=== PATIENT | female | born 1985 | race Caucasian/White ===

== ENCOUNTER 2022-05-13 01:03 | Day surgery (SDC) | payer OTHER, SELFPAY ==
[2022-04-30 13:25] VITALS: BMI 34.0
--- NOTE | 2022-04-30 13:27 | SUR.PREOP ---
Report to the Outpatient Waiting Room, entrance under the green pavilion located off [facility], at time _0600 on date _05/13/22 . Planned Procedure Time: _0730. Time changes happen often and if your time is changed the preop area will call you the afternoon before. - You and your visitor will be asked to self-screen and do not enter if you have any COVID symptoms. - Only one visitor is requested with a max of two and NO children visitors are allowed at this time. - The patient visitor may be requested to leave or wait in car when not with patient due to distancing restrictions. - A mask is optional within the hospital. Patients may have clear liquids (water, carbonated beverages, clear teas, apple juice) until 3 hours prior to surgery with a maximum of 20 ounces. - No food from midnight until time of surgery - Infants may have breast milk until 4 hours before surgery, formula 6 hours prior to surgery. - Children will be allowed to drink immediately following surgery. If applicable, please bring a bottle or sippy cup to assist with drinking. Juice, water, soda, and popsicles are readily available. For infants on formula, please bring formula the day of surgery. Pacifiers are allowed. Take the following medications with a SIP of water the morning of surgery: __venlafexine Medications to discontinue per physician ____n/a Date to take last dose__n/a Please no make-up, nail pashto, hairspray, perfume, deodorant, or body powder the day of surgery. No jewelry (including any body piercings) or valuables the day of surgery, leave them at home. Please take a shower or bath the night before, or the morning of, surgery with an antibacterial soap. Wear comfortable, loose fitting clothing. Children are encouraged to wear pajamas. - Jewelry must be removed prior to entering the operating room. Rings and piercings that are not removed may be cut off. - The hospital will not accept responsibility for valuables. - Please leave all valuables, including medications, at home the day of surgery. If you are going home after surgery, a licensed bus driver supervisor must drive you home. - NO public transportation without another adult if you receive anesthesia. - We recommend that an adult stay with you for 24 hours following discharge. - We also recommend that you do not drive, make important decision, drink alcoholic beverages, or take any drugs that were not prescribed by your health care provider for at least 24 hours after your discharge time. For Pediatric surgeries, we recommend two adults accompany the child home. Follow any additional instructions given to you from your surgeon. If you or anyone in your household have experienced Covid symptoms in the past week, please notify your surgeon or the nurse liaison at the phone number below for possible testing. Telephone instructions given to emelina mahoney and asked if any additional questions and then verbalized understanding. Patient advised to call surgeon office or pre surgery nurse liaison [phone] if any additional questions.
--- NOTE | 2022-05-12 17:40 | WPDANESEPP ---
Anes - Eval Pre Procedure Procedure: Operation Date: 05/13/22 07:30 Proposed Procedures p Hysteroscopy, Dilation and Curettage, Novasure Endometrial Ablation - Mary Kate Pabon DO Date/Time: 05/12/22 17:40 Pre Op Diagnosis: abn ultrasound, abn uterine bleeding Patient Data Age: 36 Gender: F Height: 1.68 m Weight: 95.45 kg Allergies Allergy/AdvReac Type Severity Reaction Status Date / Time Sulfa (Sulfonamide Allergy Intermediate Hives Verified 04/30/22 13:11 Antibiotics) Home Medications Medication Instructions Recorded Confirmed Type venlafaxine 75 mg capsule,extended 7 mg PO DAILY 04/30/22 04/30/22 History release 24 hr Patient hx anesthesia problems: none Family hx anesthesia problems: none Results Review: All pre-operative results and documents have been reviewed as part of the pre-operative evaluation. [facility] Past Medical History Medical History (Updated 05/12/22 @ 17:41 by Mami Booth CRNA) Obesity (BMI 30-39.9) Social History Social History Smoking status: Never smoker Alcohol use details: socially Living arrangements: with family Spiritual care concerns: No Exam Day of Procedure 05/12/22 17:40
[2022-05-13 06:19] VITALS: BP 134/84; PULSE 88; RESP 16; TEMP 36.3; O2SAT 99
[2022-05-13] MEDS: ACETAMINOPHEN 500 MG TABLET 1000 MG PO (06:34)
[2022-05-13] MEDS: LACTATED RINGERS 1,000 ML 30 ML IV CONT (06:40)
--- NOTE | 2022-05-13 07:26 | PM.IMHP ---
H&P: HPI History of Present Illness Date/Time: 05/13/22 07:26 Chief Complaint: I'm here for a D&C, ablation Narrative: Patient presents for hysteroscopy, D&C with Novasure ablation for heavy, irregular periods and a history of failed medical management. Review of Systems Review of Systems: All systems reviewed & are unremarkable except as noted in HPI and below PMFSH Past Medical History Medical History (Updated 05/13/22 @ 07:27 by Mary Kate Pabon DO) Obesity (BMI 30-39.9) Social History Social History Smoking status: Never smoker Alcohol use details: socially Living arrangements: with family Spiritual care concerns: No Meds Home Medications and Allergies Home Medications Medication Instructions Recorded Confirmed Type venlafaxine 75 mg capsule,extended 7 mg PO DAILY 04/30/22 05/13/22 History release 24 hr Allergies Allergy/AdvReac Type Severity Reaction Status Date / Time Sulfa (Sulfonamide Allergy Intermediate Hives Verified 05/13/22 06:27 Antibiotics) Vital Signs Vital Signs - 24 hr 05/13/22 06:19 Temperature 36.3 C L Pulse Rate 88 Respiratory Rate 16 Blood Pressure 134/84 Pulse Oximetry 99 Oxygen Delivery Room Air Exam Const: General: comfortable and no acute distress Eyes: General: appearance normal, both eyes and all related structures Neck: Neck: supple Resp: Effort & Inspection: normal respiratory effort Cardio: Rate: regular rate Rhythm: regular rhythm GI: GI Palp: Yes Soft to palpation Auscultation: normal bowel sounds Skin: General skin exam: normal color and no rashes or lesions noted Neuro: General: gait normal Assessment and Plan Assessment and plan (1) Abnormal uterine bleeding: Code(s): N93.9 - Abnormal uterine and vaginal bleeding, unspecified Status: Acute Assessment and Plan: Abnormal uterine bleeding Plan Hysteroscopy, D&C, Novasure ablation
--- NOTE | 2022-05-13 07:32 | P.PNAN_ITS ---
Anes - Initial Pre Proc Eval Procedure: Operation Date: 05/13/22 07:30 Proposed Procedures p Hysteroscopy, Dilation and Curettage, Novasure Endometrial Ablation - Mary Kate Pabon DO Date/Time: 05/13/22 07:32 Surgeon: Mary Kate Pabon DO Pre Op Diagnosis: abn ultrasound, abn uterine bleeding Patient Data Age: 36 Gender: F Height: 1.68 m Weight: 93.85 kg Last Vital Signs Temp 36.3 C L 05/13/22 06:19 Pulse 88 05/13/22 06:19 Resp 16 05/13/22 06:19 BP 134/84 05/13/22 06:19 Pulse Ox 99 05/13/22 06:19 O2 Del Method Room Air 05/13/22 06:19 Allergies Allergy/AdvReac Type Severity Reaction Status Date / Time Sulfa (Sulfonamide Allergy Intermediate Hives Verified 05/13/22 06:27 Antibiotics) Home Medications Medication Instructions Recorded Confirmed Type venlafaxine 75 mg capsule,extended 7 mg PO DAILY 04/30/22 05/13/22 History release 24 hr Patient hx anesthesia problems: none Family hx anesthesia problems: none Results Review: All pre-operative results and documents have been reviewed as part of the pre- operative evaluation. [facility] Social History Social History Smoking status: Never smoker Alcohol use details: socially Living arrangements: with family Spiritual care concerns: No Anes - Eval Final PreProcedure Day of Procedure 05/13/22 07:32 Patient weight: overweight Heart: regular rate and rhythm Lungs: clear to auscultation Airway: Mallampati scale class II Neurological: alert and oriented Last oral intake: >/= 8 hours ASA classification: II Emergent: no Anesthetic plan: proceed Anesthesia type and monitoring: general GIVS and standard monitoring Results Review: All pre-operative results and documents have been reviewed as part of the pre- operative evaluation. Informed Consent: The patient's anesthetic plan and its attendant risks and benefits were discussed with the patient/family/POA. Questions were solicited and answers provided to the satisfaction of the patient/family/POA.
--- NOTE | 2022-05-13 07:38 | WPDHPUPDATE1 ---
History and Physical Update Update Date/Time: 05/13/22 07:38 History and Physical has been reviewed, including an updated exam of the patient. There are NO changes in the patient's condition. Risks, benefits, and alternatives have been discussed and questions answered. Patient agrees to proceed with procedure.
[2022-05-13] MEDS: BUPIVACAINE/EPINEPHRINE 0.5% 30 ML VIAL INFILTRATE (08:02)
[2022-05-13 08:33] VITALS: BP 107/67; PULSE 90; RESP 14; O2SAT 100
--- NOTE | 2022-05-13 08:33 | P.OP_ITS ---
Procedure Note - Detailed Date of Procedure 05/13/22 Pre-op Diagnosis Abnormal uterine bleeding Post-op Diagnosis Same (Endocervical scar tissue) Procedure Performed Hysteroscopy, D&C Surgeon Mary Kate Pabon, DO Anesthesia Regional Indications Abnormal uterine bleeding Findings Normal appearing vulva and vaginal canal. Large, patulous cervix with a defect on the Description of Procedure Patient was taken to the operating room where she was placed under IV sedation. A time-out was performed. No preoperative antibiotics were indicated. A speculum was placed in the vagina and the cervix was visualized. The anterior lip of the cervix was grasped with a single-tooth tenaculum. The cervix was noted to be large and patulous with a defect on the patient's left side at 3 o'clock. This was likely due to prior procedures or childbirth. The uterus was sounded with some difficulty and the canal was noted to be extremely retroflexed and retroverted with palpation of scar tissue as the sound passed the en docervical canal. The uterus sounded to 9 cm. Once the canal was identified and noted to be retroflexed, it was dilated up using Julian collared dilators. The hysteroscope was introduced and I was able to follow the curvature of the passage both to the patient's left and posteriorly to gain access to the endometrial cavity. Both tubal ostia were visualized insuring I was indeed in the endometrium. There was a possible slight septum and the top of the uterus. No perforation from the sound was noted. The lining of the uterus appeared thin and unremarkable. The remainder of the uterine cavity appeared unremarkable. As the scope was removed the cervical length was measured to be 4 cm. A sharp curettage of the endocervical and endometrial cavity was performedwith return of minimal tissue. I then attempted to pass the NovaSure device but was unsuccessful. I attempted to completely dilate up the cervical canal in hopes that this would stretch the band of scar tissue but this was unsuccessful. I then attempted to use the sharp curette tissue shave down this area of scar tissue, but the NovaSure was still difficult to pass. Eventually angling it to the patient's left and 1st anteriorly and then posteriorly, I was able to gain access into the endometrial cavity but unfortunately felt a loss of resistance. I pulled the device back and then deployed the arms, the distance into the uterus seemed appropriate so I was going to attempt a cavity check. There was then an error noted with the machine about the device array. Despite restarting the machine this error message continued and we elected to consider trying a new device. While a new NovaSure was being retrieved I placed the hysteroscope into the cavity to assess for perforation. A small perforation in the midline of the fundus was noted. There was no bowel or fat protruding through it, I could not see if it was full-thickness but the area was completely hemostatic even with low pressure on the fluid. After visualizing this I elected to abort the remainder of the procedure as it would not be safe to pursue an ablation at this point. The patient had previously been counseled about this extensively in the office. I removed all instruments from the vagina and wiped clean of fluid and blood clots. The tenaculum sites were made hemostatic with pressure. The patient was taken to the recovery room in stable condition. All instrument and sponge counts were correct at the conclusion of the procedure. Estimated Blood Loss 10 Pathology Yes Complications Other complications (Uterine perforation without immediate sequelae) Disposition Same day
[2022-05-13 09:00] VITALS: BP 108/65; PULSE 84; RESP 16; O2SAT 100
[2022-05-13 09:30] VITALS: BP 105/71; PULSE 73; RESP 16
[2022-05-13] MEDS: oxyCODONE HCL (*CRX) 5 MG TAB IR PO (09:30)
[2022-05-13] MEDS: DOXYCYCLINE HYCLATE 100 MG TABLET PO (09:30)
[2022-05-13 10:00] VITALS: BP 97/71; PULSE 73; RESP 16
== END 2022-05-13 10:18 | disposition home or self-care (01) ==
PROVIDERS: Visit Provider Obstetrics & Gynecology Gynecologic Oncology
PROC: 0U5B8ZZ Destruction of Endometrium, Via Natural or Artificial Opening Endoscopic (ICD-10-PCS; CPT 58563; principal; 2022-05-13 07:30)
DX: N93.9 Abnormal uterine and vaginal bleeding, unspecified (principal); N88.1 Old laceration of cervix uteri; N99.71 Accidental puncture and laceration of a genitourinary system organ or structure during a genitourinary system procedure; E66.9 Obesity, unspecified; Z68.33 Body mass index [BMI] 33.0-33.9, adult
CPT/HCPCS: 58563; 88305; A9270; J1885; J2250; J2405; J2704; J3010; J7030; J7120

== ENCOUNTER 2025-03-21 18:32 | Emergency (ER) | payer OTHER, SELFPAY ==
--- NOTE | ~2025-03-21 | US_ITS ---
US abdomen limited INDICATION: Right upper quadrant pain. Possible cholecystitis. Nausea and vomiting. PROCEDURE: Realtime right upper abdominal ultrasound. COMPARISON: No prior studies for comparison. FINDINGS: The pancreas is normal without focal mass or pancreatic ductal dilation. Liver echotexture is normal without focal mass or intrahepatic biliary dilatation. There is normal directional flow in the portal vein. Gallbladder is mildly distended and contains gallstones. No gallbladder wall thickening or pericholecystic fluid. Common bile duct measures 2 mm. No sonographic Chase's sign. IMPRESSION: 1: Cholelithiasis. Reviewed, dictated and finalized at location O. MATION SPECIALIST IMPRESSION: 1: Cholelithiasis.
[2025-03-21 18:34] VITALS: BP 133/87; PULSE 82; RESP 18; TEMP 36.6; O2SAT 100
--- OUTSIDE RECORDS SUMMARY | 2025-03-21 18:35 | XMS_ITS | Clinical Summary ---
Author Organization [facility] Address Formerly [facility], [facility] [place] [address] Care Team Providers Care Feedmobile Driver Name Role Phone Savanah Davis CARMEN Primary Care Provider [phone] Allergies Active Allergy Reactions Criticality Noted Date Comments Sulfa Antibiotics Hives 06/13/2015 Medications tirzepatide (ZEPBOUND) 2.5 MG/0.5ML injectionIndic ations:Weight Loss Inject 2.5 mg into the skin once a week. Indications: Weight Loss 8 mL 03/07/20 25 Active ZEPBOUND 2.5 MG/0.5ML injectionIndic ations:Encount er for weight management,Obe sity (BMI 30.0-34.9) INJECT 1 PEN SUBCUTANEOUSLY ONCE A WEEK 8 mL 12/31/19 25 025 Discontin ued(Reord er) Active Problems Problem Noted Date Diagnosed Date JOE (generalized anxiety disorder) 01/08/2021 Resolved Problems Problem Noted Date Diagnosed Date Resolved Date Class 1 obesity due to exces s calories without serious comorbidity with body mass index (BMI) of 34.0 to 34.9 in adult 01/08/2021 Polycystic ovarian syndrome 09/22/2014 01/08/2024 Immunizations Immunization Administration Dates Next Due Dtap 11/12/1992, 9,02/06/1988,1987,1987 Hepatitis B Pediatric 07/21/1997,02/13/1997,12/17 Influenza Adult (Generic) 03/09/2023 MMR 11/12/1992,12/03/1988 Opv 11/12/1992,02/04/1989,1987 ,1987 Tdap (Generic) 02/05/2023 Family History Medical History Relation Comments Bone cancer Father Hypertension Father Breast Cancer Maternal Aunt 1 Breast Cancer Maternal Aunt 2 Cancer Maternal Grandfather Lung Depression Mother Alcohol Abuse Paternal Grandfather Cancer Paternal Grandfather Lung Cancer Paternal Grandmother Cervical Relation Status Comments Father Maternal Aunt 1 Maternal Aunt 2 Alive Maternal Grandfather Mother Paternal Grandfather Paternal Grandmother Social History Tobacco Use Types Packs/Day Years Used Date Smoking Tobacco: Never Smokeless Tobacco: Never Tobacco Cessation:Counseling Given: Not Answered Alcohol Use Standard Drinks/Week Comments Not Currently 0 (1 standard drink = 0.6 oz pur e alcohol) socially PHQ-2 Answer Date Recorded Patient Health Questionnaire-2 Score 0 08/17/2024 Comments No Sex and Gender Information Value Date Recorded Sex Assigned at Female 08/17/2024 12:56 PM CDT 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 Gender Identity Not on file Sexual Orientation Not on file Last Filed Vital Signs Vital Sign Reading Time Taken Comments Blood Pressure 106/74 08/17/2024 12:54 PM CDT Pulse 78 08/17/2024 12:54 PM CDT Temperature 36.7 C (98.1 F) 08/17/2024 12:54 PM CDT Respiratory Rate 16 08/17/2024 12:5 4 PM CDT Oxygen Saturation 98% 08/17/2024 12: 54 PM CDT Inhaled Oxygen Concentration - - Weight 62.5 kg (137 lb 12.8 oz) 025 12:54 PM CDT Height 167.6 cm (5' 6) 08/17/2024 12:5 4 PM CDT Body Mass Index 22.24 08/17/2024 12:54 PM CDT Plan of Treatment Health Maintenance Due Date Last Done Comments Cervical Cancer Screening Pap Smear (Age 30 to 64) Every 3 Years 1987 HPV Vaccines (1 - 3-dose SCDM series) 07/28/2014 Cervical Cancer Screening Pap with HPV Testing (Age 30 to 64) Every 5 Years 07/28/2017 Annual Physical 01/07/2025 01/08/2024 Cervical Cancer Screening with HPV 06/16/2026 Postponed from 07/28/2017 (Going to Outside Clinic) DTaP, Tdap and Td Vaccines (7 - Td or Tdap) 02/05/2033 02/05/2023, 11/12/1992, 02/04/1989, Additional history exists COVID-19 Vaccine ( season) 2050 07/20/2020, 06/01/2020 Postponed from 01/16/2025 (Patient Refused) Hepatitis B Vaccines Completed 07/21/1997, 02/13/1997, 01/13/1997 Hepatitis C Completed 02/26/2021, 04/17/2020 PHQ-2 (Physician [place]) Completed 08/17/2024 Influenza Adult Completed 02/15/2025, 02/15, 03/09/2023 Hepatitis A Vaccines Aged Out No long er eligible based on patient's age to complete this topic Meningococcal B Vaccine Aged Out No l onger eligible based on patient's age to complete this topic Meningococcal Vaccine Aged Out No mercy marissa eligible based on patient's age to complete this topic Pneumococcal Vaccine: Pediatrics (0 to 5 Years) and At-Risk Patients (6 to 49 Years) Aged Out No longer eligible based on patient's age to complete this topic RSV Immunizations Under 20 Months Aged Out No longer eligible based on patient's age to complete this topic Procedures Procedure Name Priority Date/Time Associated Diagnosis Comments HEPATITIS C RNA W/ REFLX GENOTYPE Routine 02/26/2021 3:59 PM CDT from Last 3 Months or Most Recently Relevant to Health Maintenance Results * HEPATITIS C RNA W/ REFLX GENOTYPE (02/26/2021 3:59 PM CDT) HEPATITIS C AB NON-REACT JOHAN NON-REACT JOHAN [facility] SIGNAL TO CUTOFF 0.01 <1.00 [facility] Comment: HCV antibody was non-reactive. There is no laboratory evidence of HCV infection. In most cases, no further action is required. However, if recent HCV exposure is suspected, a test for HCV RNA (test code 20981) is suggested. For additional information please refer to http://education.CyberDefender/faq/VVA09m2 (This link is being provided for informational/ educational purposes only.) THIS TEST WAS PERFORMED AT: [employer] Referrals [id number] [facility] [place] [address] BRYANT CULVER DO,MPH 02/26/2021 3:59 PM CDT 02/26/2021 3:59 PM CDT Meredith Lerner MD LABORATORY Final Result [facility] [address] [place] [address] from Last 3 Months or Most Recently Relevant to Health Maintenance Insurance [facility] Advance Directives Documents on File Type Date Recorded Patient Open Cut Examiner Expl anation Advance Directives and Living Will 08/09/2015 12:00 AM ADVANCED DIRECTIVES Care Teams Feedmobile Driver Relationship Specialty Start Date End Date Savanah Davis FNP [address] [place] [id number] PCP - General Nurse Practitioner Family 12/16/23
--- OUTSIDE RECORDS SUMMARY | 2025-03-21 18:35 | XMS_ITS | Encounter Summary ---
Author Organization [facility] Address [address] [place] [address] Care Team Providers Care Cosmetician Name Role Phone Savanah Davis NP Primary Care Provider [phone] Encounter Details Date Type Department Care Team ([facility] st Contact Info) Description 03/21/2025 Results Follow-Up [address] [phone] Evelyne Farrell, DO [address] [place] [address] Pap and HPV, reflex to HPV Genotypes, SureSwab Advanced Vaginitis, TMA Social History Tobacco Use Types Packs/Day Years Used Date Smoking Tobacco: Never Smokeless Tobacco: Never PHQ-2 Answer Date Recorded PHQ-2 Total Score 0 03/15/2025 Comments Unknown Sex and Gender Information Value Date Recorded Sex Assigned at Not on file 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 Gender Identity Not on file Sexual Orientation Not on file Occupation Industry Job Start Date Job End Date nurse Not on file Not on file Not on file documented as of this encounter Ordered Prescriptions Prescription Sig Dispense Quantity Refills Last Filled Start Date End Date metroNIDAZOLE (FLAGYL) 500 mg tablet Take 1 tablet (500 mg total) by mouth 2 (two) times a day for 7 days 14 tablet 03/21/2025 03/28/2025 documented in this encounter Plan of Treatment Not on file documented as of this encounter Visit Diagnoses Not on filedocumented in this encounter Care Teams Cosmetician Relationship Specialty Start Date End Date Savanah Davis NP [address] [place] [address] [place] [id number] PCP - General Family Practice 10/28/24 documented as of this encounter
--- OUTSIDE RECORDS SUMMARY | 2025-03-21 18:35 | XMS_ITS | Clinical Summary ---
Author Organization [facility] Address [address] [place] [address] Care Team Providers Care Route Cdl Driver Name Role Phone Savanah Davis NP Primary Care Provider [phone] Allergies Active Allergy Reactions Criticality Noted Date Comments Sulfa (Sulfonamide Antibiotics) Rash,Urticaria Medium 10/20/2012 Medications Zepbound 2.5 mg/0.5 mL pen injector Inject 0.5 mL (2.5 mg total) under the skin once a week Active metroNIDAZOLE (FLAGYL) 500 mg tablet Take 1 tablet (500 mg total) by mouth 2 (two) times a day for 7 days 14 tablet 03/21/2025 Active Encounters Date Type Department Care Team Description 03/21/2025 Results Follow-Up [facility] [address] [place] [id number] Evelyne Farrell DO Pap and HPV, reflex to HPV Genotypes, SureSwab Advanced Vaginitis, TMA 03/15/2025 10:00 AM CDT Office Visit [facility] at [address] [place] [address] Evelyne Farrell DO Screen for sexually transmitted diseases (Primary Dx); Well woman exam from Last 3 Months Surgical History Surgery Date Site/Laterality Comments SECTION 02/08/2007 SECTION 01/03/2011 HYSTEROSCOPY 2-3 years ago Social History Tobacco Use Types Packs/Day Years Used Date Smoking Tobacco: Never Smokeless Tobacco: Never Tobacco Cessation:Counseling Given: Not Answered PHQ-2 Answer Date Recorded PHQ-2 Total Score 0 03/15/2025 Comments Unknown Sex and Gender Information Value Date Recorded Sex Assigned at Not on file 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 Gender Identity Not on file Sexual Orientation Not on file Occupation Industry Job Start Date Job End Date nurse Not on file Not on file Not on file Obstetrics History Para Term AB IAB SAB Ectopic Multiple Livin g Live Births 2 2 Date Outcome GA Total Labor Labor/2nd/3rd Weight Sex Type Anes PTL Aurelia A1 A5 Name Clin Last Filed Vital Signs Vital Sign Reading Time Taken Comments Blood Pressure 126/62 03/15/2025 10:19 AM CDT Pulse 80 03/15/2025 10:19 AM CDT Temperature - - Respiratory Rate - - Oxygen Saturation 98% 03/15/2025 10:19 AM CDT Inhaled Oxygen Concentration - - Weight 62.8 kg (138 lb 6.4 oz) 03/15/2025 10:19 AM CDT Height - - Body Mass Index - - Plan of Treatment Health Maintenance Due Date Last Done Comments Hepatitis C Screening 1987 Varicella Vaccines (1 of 2 - 13+ 2-dose series) 07/28/2000 Regular Well Visit/Exam 18-64 07/28/2005 HPV Vaccines (1 - 3-dose SCDM series) 07/28/2014 Covid-19 Vaccine ( season) 2025 07/20/2020, 06/01/2020 Influenza Vaccine (#1) 2025 03/01/2024, 2022 Cervical Cancer Screening 03/15/2026 03/15/2025 Depression Screening 03/15/2026 03/15/2025 DTaP/Tdap/Td Vaccine (7 - Td or Tdap) 02/05/2033 02/05/2023, 11/12/1992, 02/04/1989, Additional history exists Hepatitis B Screening Completed 07/21/1997 , 02/13/1997, 01/13/1997 Pneumococcal vaccine <65 Aged Out No longer eligible based on patient's age to complete this topic Procedures Procedure Name Priority Date/Time Associated Diagnosis Comments PAP AND HPV, REFLEX TO HPV GENOTYPES Routine 03/15/2025 3:27 PM CDT Well woman exam SURESWAB ADVANCED VAGINITIS, TMA Routine 03/15/2025 3:27 PM CDT from Last 3 Months Results * Pap and HPV, reflex to HPV Genotypes (03/15/2025 3:27 PM CDT) CLINICAL INFORMATION: [facility] Comment:WELL WOMAN/CERVICAL CANCER SCREENI LMP [facility] Comment:03/05/25 Previous Pap [facility] Comment:NONE GIVEN Prev. Bx [facility] Comment:NONE GIVEN SOURCE: [facility] Comment:Cervix, Endocervix Pap, specimen adequacy [facility] Comment: Satisfactory for evaluation. Endocervical/transformation zone component present. HPV interp [facility] Comment: Cytology Results: Negative for intraepithelial lesion or malignancy. Infection: [facility] Comment: Trichomonas vaginalis identified. Shift in vaginal norberto suggestive of bacterial vaginosis. COMMENTS [facility] Comment: This Pap test has been evaluated with the ThinPrep(R) Imaging System. General Production Worker [facility] Comment: FCB, CT(ASCP) CT screening location: [facility], [address] [place] [address] [address], [place] [address] Cash Register Servicer: JOSÉ HOUGH MD, CLIA: [id number] Comment [facility] Comment: EXPLANATORY NOTE: The Pap is a screening test for cervical cancer. It is not a diagnostic test and is subject to false negative and false positive results. It is most reliable when a satisfactory sample, regularly obtained, is submitted with relevant clinical findings and history, and when the Pap result is evaluated along with historic and current clinical information. Human papillomavirus DNA, High Risk E6/E7 Not Detected NOT DETECTED [facility] Comment: Not Detected High Risk HPV types (16,18,31,33,35,39,45,51,52, 56,58,59,66,68) were not detected. Other HPV types which cause anogenital lesions may be present. The significance of the other types of HPV in malignant processes has not been established. Methodology: Real Time PCR Thin prep-Endocervica l 03/15/2025 3:27 PM CDT 03/16/2025 3:02 PM CDT Evelyne Farrell DO LAB CYTOLOGY ORDERABLES Final Result Performing Organization Address City/[facility]/ZIP Co de Phone Number [facility] [place] [address] [address] [facility] [place] [address] [place] [address] * (ABNORMAL) Sureab Advanced Vaginitis, TMA (03/15/2025 3:27 PM CDT) SureSwab(R) ADV Bacterial vaginosis (BV), TMA POSITIVE(A) NEGATIVE [facility] Vilma species NOT DETECTED NOT DETECTED [facility] Vilma glabrata NOT DETECTED NOT DETECTED [facility] Comment: Vilma species C. albicans, C. tropicalis, C. parapsilosis, and/or C. dubliniensis can be detected, but not differentiated, in the Vilma spp. result. Trichomonas vaginalis (TV), TMA DETECTED(A) NOT DETECTED [facility] 03/15/2025 3:27 PM CDT 03/16/2025 3:02 PM CDT us Evelyne Farrell DO LAB MICROBIOLOGY - GENE RAL ORDERABLES Final Result Performing Organization Address City/[facility]/ZIP Co de Phone Number [facility] [address] [place] [address] from Last 3 Months [facility] Care Teams Route Cdl Driver Relationship Specialty Start Date End Date Savanah Davis NP [address] [place] [address] [place] [address] PCP - General Family Practice 10/28/24
--- OUTSIDE RECORDS SUMMARY | 2025-03-21 18:35 | XMS_ITS | Clinical Summary ---
Author Organization [facility] Address [address] [place] [address] Care Team Providers Care Coastal And Estuary Specialist Name Role Phone Unavailable Primary Care Provider Unavailabl e Source Comments [facility],non-owned Affiliates and Associated Physician Practices is amultiple site organization consisting of ambulatory clinics and hospital sitesin [place], [place], [place] and [place]. This disclosure is being madepursuant to the Care Everywhere program and may not contain all information available regarding this patient. Last updated 18.[facility] Allergies Active Allergy Reactions Criticality Noted Date Comments Erythromycin-Sulfisoxazole Urticaria,Rash Low 10/20 Sulfa Drugs Urticaria,Rash Low 10/20/2012 Medications * Be aware that medications may not be up to date on this document. Alwaysverify current medications with the patient. levothyroxine (SYNTHROID) 25 MCG tablet Take 1 tablet by mouth once daily 30 tablet 5 12/03/2017 Active Active Problems Problem Noted Date Diagnosed Date PCOS (polycystic ovarian syndrome) 09/22/2014 Abdominal pain, generalized 01/06/2014 Neck pain on left side 02/21/2013 Immunizations Immunization Administration Dates Next Due DTaP VACCINE IM (6wk-6yrs) 11/12/1992,,02/06/1988,1987,10/09 HEP B VACCINE, PED/ADOL 07/21/1997,02/13/1997, MMR 11/12/1992,12/03/1988 POLIO OPV 11/12/1992,02/04/1989,1987 ,1987 Family History Medical History Relation Name Comments Cancer - Other Father skin Hypertension Father Relation Name Status Comments Father Alive Mother Alive Social History Tobacco Use Types Packs/Day Years Used Date Smoking Tobacco: Never Smokeless Tobacco: Never Alcohol Use Standard Drinks/Week Comments Yes 0 (1 standard drink = 0.6 oz pur e alcohol) socially Comments No Sex and Gender Information Value Date Recorded Sex Assigned at Not on file 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 Gender Identity Not on file Sexual Orientation Not on file Occupation Industry Job Start Date Job End Date [employer] Not on file Not on florin e Not on file Last Filed Vital Signs Vital Sign Reading Time Taken Comments Blood Pressure 120/78 01/06/2017 10:08 AM CDT Pulse 83 01/06/2017 10:08 AM CDT Temperature 36.7 C (98.1 F) 01/06/2017 10:08 AM CDT Respiratory Rate 18 02/21/2013 9:27 PM CDT Oxygen Saturation 96% 01/06/2017 10: 08 AM CDT Inhaled Oxygen Concentration - - Weight 84.7 kg (186 lb 12.8 oz) 017 10:08 AM CDT Height 167.6 cm (5' 6) 01/06/2017 10:0 8 AM CDT Body Mass Index 30.15 01/06/2017 10:08 AM CDT Plan of Treatment Health Maintenance Due Date Last Done Comments DTAP/TDAP/TD VACCINES (6 - Tdap) 07/28/1998 11/12/1992, 02/04/1989, 02/06/1988, Additional history exists HIV SCREENING 07/28/2002 HEPATITIS C SCREENING 07/24/2005 HPV VACCINE (1 - 3-dose SCDM series) 07/28/2014 DEPRESSION SCREENING 05/18/2024 COVID-19 VACCINE ( season) 2025 INFLUENZA VACCINE (#1) 2025 ZOSTER VACCINE (1 of 2) 07/28/2037 HEPATITIS B VACCINE Completed 07/21/1997, 02/13/1997, 01/13/1997 HIB VACCINE Aged Out No longer eligi ble based on patient's age to complete this topic MENINGOCOCCAL (Group B) VACCINE SHARED DECISION-MAKING Aged Out No longer eligible based on patient's age to complete this topic MENINGOCOCCAL GROUPS A/C/Y/W VACCINE Aged Out No longer eligible based on patient's age to complete this topic PNEUMOCOCCAL VACCINE Aged Out No long er eligible based on patient's age to complete this topic [place] [address] [place] [address]
[2025-03-21 19:08] LABS: BEDSIDEPREGUCG Negative (Negative)
[2025-03-21 19:08] LABS: Add Urine Microscopic? NO; Appearance Urine Clear (Clear); Glucose Urine UA Negative (Negative); Leukocyte Esterase Ur Negative LEU/UL (Negative); Nitrate Urine Negative (Negative); Specific Grav Ur 1.015 (1.001-1.035)
[2025-03-21 19:10] LABS: Hematocrit 44.1 % (37.0-47.0); Hemoglobin 14.7 g/dL (12.0-15.0); Immature Granulocyte Percent A 0.1 % (0-0.5); Lymphocytes Absolute Auto 3.76 K/mm3 (0.9-3.2); Mean Corpuscular HGB Conc 33.3 g/dl (32-36); Mean Corpuscular Hemoglobin 30.4 pg (26-34); Mean Corpuscular Volume 91.3 fl (80-100); Nucleated Red Blood Cells Absolute Auto 0.000 K/mm3 (0.0-0.012); Nucleated Red Blood Cells Perc 0.0 % (0.0-0.2); Platelet Count Result 260 k/mm3 (150-375); Red Blood Count 4.83 M/mm3 (4.2-5.4); White Blood Count 8.3 K/mm3 (4.5-10.0)
--- NOTE | 2025-03-21 19:36 | ED.ABDPAIN ---
HPI - Abdominal Pain General Chief Complaint: Abdominal Pain Stated Complaint: abd pain Time Seen by Provider: 03/21/25 18:40 Source: patient Mode of arrival: ambulatory Limitations: no limitations History of Present Illness HPI narrative: This is a 39-year-old female with no significant past medical history who presents the ED for abdominal pain. Patient states that she arrived at the gym when she had sudden onset right upper quadrant abdominal pain. She tried to have bowel movement but the pain worsened. Lasted about 2 hours until her arrived in the parking lot of the ED when it improved. She reports some mild soreness to the right upper quadrant this time. She has C-sections in the past but still has her gallbladder and appendix. Denies any fevers, chills, chest pain. She did have nausea but this has resolved. Related Data Home Medications ?Medication ?Instructions ?Recorded ?Confirmed ?Last Taken ?Type venlafaxine 75 mg capsule,extended 7 mg PO DAILY 04/30/22 05/13/22 05/13/22 History release 24 hr Allergies Allergy/AdvReac Type Severity Reaction Status Date / Time Sulfa (Sulfonamide Allergy Intermediate Hives Verified 05/13/22 06:27 Antibiotics) Review of Systems Review of Systems: Gen.: Denies fevers or chills Eyes: Denies eye pain or visual change ENT: Denies congestion Respiratory: Denies shortness of breath or cough CV: Denies chest pain or palpitations GI: As per HPI denies burning, urgency, frequency or hematuria Musculoskeletal: Denies back pain or muscle pain Neuro: Denies numbness, tingling, weakness or focal weakness Skin: Denies rash Except as documented, all other systems reviewed and negative [facility] Social History Social History Alcohol use details: socially Living arrangements: with family Spiritual care concerns: No Exam Narrative: APPEARANCE: No acute distress, nontoxic, resting in bed EYES: EOMI HEENT: Normocephalic, atraumatic, OMM RESPIRATORY: No respiratory distress Clear to auscultation bilaterally with no rhonchi wheezing or rales. CARDIOVASCULAR: Regular rate and rhythm without murmurs rubs or gallops. ABDOMINAL: Soft, right upper quadrant tenderness to palpation with positive Chase sign, nondistended, no rebound or guarding MUSCULOSKELETAl: Moves all extremities. No clubbing, cyanosis or edema. NEURO: Awake and alert. Following commands, speech normal, no focal deficits SKIN:: Warm, dry. No rashes lesions or abrasions PSYCHIATRIC: Normal affect/mood, Course Vital Signs Vital signs: Vital Signs Temperature 98 F 03/21/25 18:34 Pulse Rate 82 03/21/25 18:34 Respiratory Rate 18 03/21/25 18:34 Blood Pressure 133/87 03/21/25 18:34 Pulse Oximetry 100 03/21/25 18:34 Oxygen Delivery Room Air 03/21/25 18:34 Temperature 98 F 03/21/25 18:34 Pulse Rate 82 03/21/25 18:34 Respiratory Rate 18 03/21/25 18:34 Blood Pressure 133/87 03/21/25 18:34 Pulse Oximetry 100 03/21/25 18:34 Oxygen Delivery Room Air 03/21/25 18:34 MDM - Abdominal Pain MDM Narrative Medical decision making narrative: 39-year-old female Presenting for right upper quadrant abdominal pain. On initial evaluation patient was in no acute distress afebrile, hemodynamic stable. Differentials include but are not limited to: ACS, cholecystitis, choledocolithiasis, ascending cholangitis, hepatitis, SBO, constipation, cancer Notable exam findings: Right upper quadrant tenderness to palpation with positive Chase sign Notable lab findings: CBC and CMP without significant abnormalities. Notable imaging findings: Ultrasound right upper quadrant showed cholelithiasis On documentation after the fact, there was noted elevated lipase and LFTs that is likely consistent with choledocholithiasis. Patient was called and she will be returning to the ER to be admitted for further GI evaluation. Medical Records Attestation: I reviewed the patient's medical records. Lab Data Attestation: I reviewed the patient's lab results. 03/21/25 18:50 03/21/25 18:50 Labs: Lab Results 03/21/25 03/21/25 03/21/25 Range/Units 18:50 18:56 19:06 WBC 8.3 (4.5-10.0) K/mm3 RBC 4.83 (4.2-5.4) M/mm3 Hgb 14.7 (12.0-15.0) g/dL Hct 44.1 (37.0-47.0) % MCV 91.3 (80-100) fl MCH 30.4 (26-34) pg MCHC 33.3 (32-36) g/dl RDW 12.7 (11.5-14.5) % Plt Count 260 (150-375) k/mm3 MPV 9.2 (7.4-10.4) fl Immature Gran % (Auto) 0.1 (0-0.5) % Neut % (Auto) 41.7 L (45.5-73.1) % Lymph % (Auto) 45.2 H (18.3-44.2) % [place] % (Auto) 7.5 (2.6-8.5) % Eos % (Auto) 4.9 H (0-4.4) % Baso % (Auto) 0.6 (0.2-1.2) % Lymph # (Auto) 3.76 H (0.9-3.2) K/mm3 [place] # (Auto) 0.6 (0.1-0.6) K/mm3 Eos # (Auto) 0.4 H (0-0.3) K/mm3 Baso # (Auto) 0.1 (0.0-0.1) K/mm3 Abs Immat Gran (auto) 0.01 (0.00-0.031) K/mm3 Absolute Neuts (auto) 3.5 (1.3-6.7) K/mm3 Absolute Nucleated RBC 0.000 (0.0-0.012) K/mm3 Nucleated RBC % 0.0 (0.0-0.2) % Sodium 138 (137-145) mmol/L Potassium 4.1 (3.4-5.0) mmol/L Chloride 101 (98-107) mmol/L Carbon Dioxide 26 (22-30) mmol/L Anion Gap 11 (4-12) mmol/L BUN 23 H (7-17) mg/dL Creatinine 0.80 (0.7-1.0) mg/dL Estim Creat Clear Calc Not Reportable Estimated GFR > 60 (59 - ) Glucose 96 (65-110) mg/dL Calcium 9.4 (8.4-10.2) mg/dL Total Bilirubin 0.7 (0.2-1.3) mg/dL AST 220 H (14-36) U/L ALT 162 H (6-35) U/L Alkaline Phosphatase 63 (38-126) U/L Total Protein 7.7 (6.3-8.2) g/dL Albumin 4.7 (3.5-5.1) g/dL Lipase 1651 H (23-300) U/L Urine Color Yellow (Yellow) Urine Appearance Clear (Clear) Urine pH 7.0 (5.0-9.0) Ur Specific [place] 1.015 (1.001-1.035) Urine Protein Negative (Negative) mg/dL Urine Glucose (UA) Negative (Negative) mg/dL Urine Ketones Negative (Negative) mg/dL Ur Blood (Man) Negative (Negative) Urine Nitrate Negative (Negative) Urine Bilirubin Negative (Negative) Urine Urobilinogen 0.2 (<2.0) mg/dL Leukocyte Esterase Rfl Negative (Negative) OJ/UL POC Urine HCG, Qual Negative (Negative) Imaging Data Attestation: I personally reviewed and interpreted this imaging study as follows: Radiologist's impression: ITS Impressions Abdomen Ultrasound 03/21/25 19:59 IMPRESSION: 1: Cholelithiasis. Discharge Plan Discharge Clinical Impression: Cholelithiasis Qualifiers: Cholelithiasis location: gallbladder Cholecystitis presence: without cholecystitis Biliary obstruction: without biliary obstruction Qualified Code(s): K80.20 - Calculus of gallbladder without cholecystitis without obstruction Patient Disposition: Home Condition: Stable Instructions: Antibiotic Form, Gallstones (ED) Additional Instructions: Ultrasound demonstrated gallstones. I suspect that you may have either passed a gallstone or you may have had a temporary blockage. There is no evidence of a gallbladder infection. You may require surgical removal overall bladder in the future, your given a referral to Dr. Torres, general surgery: Call his office to schedule appointment in the next week or so. Return to the ED for any new or worsening symptoms. Patient Language: Kinyarwanda Prescriptions: No Action venlafaxine 75 mg capsule,extended release 24hr 7 mg PO DAILY doxycycline hyclate 100 mg capsule 100 mg PO BID Qty: 14 0RF hydrocodone-acetaminophen 5-325 mg tablet 1 tablet PO Q6H PRN (Reason: pain) Qty: 6 0RF ibuprofen 600 mg tablet 600 mg PO Q6H PRN (Reason: fever or pain) Qty: 30 0RF Follow-up/Referrals: PHYSICIAN NOT ON STAFF,NONSTAFF [Primary Care Provider]
--- OUTSIDE RECORDS SUMMARY | 2025-03-21 20:06 | XMS_ITS | Data Portability ---
Author Organization [facility] [place] [facility], [id number] [facility] Address [address] [place] [address] Assessment No assessment recorded. Plan of Treatment Reminders Order Date Submit Date Provider Last Modified By Organization Details Last Modified Time Details Appointments ANNUAL - EST 15 026 01:15PM ERIN WILSON WHNP Not available Not available Not available Lab None record ed. Referral None record ed. Procedures None record ed. Surgeries None record ed. Imaging None record ed. Medication Orders None record ed. Patient TargetsNo targets recorded. Patient InstructionsNo instructions recorded. Reason for Referral None Reported. Problems Name Problem SNOMED Code Status Onset Date Resolution Date Notes Provider Name and Address Organization Details Recorded Time Anxiety state 236295697 Active Anxiety Disorder , Curtis patton, Problem Code: 300.00; Problem Code Type: ICD-9; Not Available On license of [facility] 12:38:24 Anxiety 50132389 [facility] [place] [facility] 15:15:28 Problem Notes None recorded. Procedures Surgical History Date Name Laterality Status Provider Name and Address Organization Details Recorded Time 04/18/20 21 Date of Last [facility] 07/22/2024 15:15:46 03/04/20 21 removal of Mirena coil completed Not Available On license of [facility] 09/15/2024 14:15:21 section completed [facility] 07/22/2024 15:18:12 Colposcopy completed [facility] 07/22/2024 15:18:24 Endometrial Biopsy completed [facility] 07/22/2024 15:18:36 Hysteroscopy completed [facility] 07/22/2024 15:19:05 Mirena, 52 mg completed [facility] 07/22/2024 15:19:45 hysteroscopy and endometrial biopsy completed Not Available On license of [facility] 09/15/2024 14:15:20 introduction of Mirena coil completed Not Available On license of [facility] 09/15/2024 14:15:21 endometrial biopsy completed Not Available On license of [facility] 09/15/2024 14:15:21 colposcopy completed Not Available On license of [facility] 09/15/2024 14:15:21 extraction of wisdom tooth completed Not Available On license of [facility] 09/15/2024 14:15:21 Imaging Results None recorded. Procedure Notes None recorded. Medical Equipment None Reported. Allergies Allergen ID Allergen Name Allergen Category Reaction Reaction Severity Criticality Documentation Date Start Date Code Code System Note Provider Name and Address Organization Details Recorded Time 837679 Substance with sulfonami de structure and antibacte rial mechanism of action (substanc e) medicatio n Not available Not available Not available 07/22/2024 42634 8003 SNOMED [facility] for [facility] 13:15:53 Medications Name Sig Start Date Stop Date Status Note LastModified by Organization Details LastModified Time metronidazo le 0.75 % (37.5 mg/5 gram) vaginal gel 07/25 completed Not Available Not Available Not Available ketorolac 10 mg tablet 07/25 completed Not Available Not Available Not Available doxycycline monohydrate 100 mg capsule 07/25 completed Not Available Not Available Not Available cephalexin 500 mg capsule TAKE 1 CAPSULE BY MOUTH TWICE DAILY 07/25 completed Not Available Not Available Not Available Zepbound 5 mg/0.5 mL subcutaneou s pen injector INJECT 1 SYRINGE SUBCUTANE OUSLY ONCE A WEEK active Not Available Not Available No t Available Zepbound 2.5 mg/0.5 mL subcutaneou s pen injector 07/25 completed Not Available Not Available Not Available Vitals Date Recorded Body height Body mass index (BMI) Body weight Systolic And Diastolic Provider Name and Address Organization Details Last Updated DateTime 07/25/2024 167.64 cm 22.6 kg/m2 74103.93 g 120/68 mm[Hg] Sony Drake [facility] 07/25/2024 13:15:34 Social History Question Answer Notes LastModified by Partschannel Details LastModified Time Tobacco Smoking Status Never Smoker Note: - ; Screenin03/13/2021 Not Available [employer] 09/15/2024 14:59:37 How Many Times Per Week Do You Exercise? Less Than 1 Time Per Week SocialHistor yQuestion: 'Minimal Amount Of Exercise (Once Weekly Or Less)'; [email or web address] Information not available 09/15/2024 What Is Your Relationship Status? [email or web address] Information not available 07/25/2024 Sex: Unknown Functional Status Question Answer Note LastModified by Partschannel Details LastModified Time Do you use any illicit or recreational drugs? No Information not available 09/15/2024 What is your level of alcohol consumption? 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 Family History Relationship Description Onset Age of this Age Resolved Age Notes LastModified by Organization Details LastModified Time Maternal Grandmother Malignant neoplasm of cervix uteri [email or web address] Not available 11/2024 15:17:29 Mother Depressive disorder [email or web address] Not available 2024 15:17:44 Father Hypertensive disorder [email or web address] Not available 2024 15:17:54 Paternal Grandmother Malignant neoplastic disease Cancer PGM: Danielic al [email or web address] Not available 09/15/2024 15:02:02 Medical History Condition Response Reviewed with no changes Y Psych- Anxiety Disorder Y Cancer- Genetic screening Gynecological History Statement/Question Response Flow Moderate Date of LMP 07/19/2024 History of Abnormal PAP Y Menses Monthly Y Current Control Method: Vasectomy - Partner Duration of Flow (days) 7 Date of Last Pap Smear 04/18/2021 Sexual Problems? N Current Control Method Partner Vas ectomy Date of Last Cholesterol Screening 05/18 Obstetrics History GPAL:G 2 P 2 0 0 2 Type Value Multiple Births 0 Full Term 2 Induced 0 Spontaneous 0 Premature 0 Living 2 Ectopics 0 Total 2 Past Encounters Encounter ID Performer Location Encounter Start Date Encounter Closed Date Diagnosis/Indication Diagnosis SNOMED-CT Code Diagnosis ICD10 Code Diagnosis IMO Codes Diagnosis Note [id number] [address]IE NES[address], MD [id number] [facility] [address] [facility] [place] [address] 07/25/2024 12:45:58 07/25/2024 13:40:35 Gynecologic examination 01410782 Z01.419 Health Concerns Section Related Observation LastModified by Organization Detai ls LastModified Time None Recorded Concern Status LastModified by Organization Details LastModified Time None Recorded Advance Directives Directive None Recorded Payers Insurance Date Sequence Insurance Name Policy Number Policy Cross Covered Member ID Cross Member ID Guarantor Name 07/25/2024 1 [employer] [id number] Josse Sathya [id number] Winsome Mcdonnell Notes Date Note Type Note Provider Name and Address Organization Details Recorded Time 5 text/html [facility] Annual Well-Women Visit Age 30-39Reported by PatientPreventive Health ScreeningsFor current medical history, patient reportsreviewed and documented. For last pap smear, patient reportslast pap smear was normalandlast hpv negative. For diabetes screening, patient reportsreviewed and documented in wardrobe technician history. For lipid screening, patient reportsreviewed and documented in wardrobe technician history. For thyroid screening, patient reportsreviewed and documented in wardrobe technician history.ContraceptionFor contraceptive method, patient reportssatisfied with current methodandcontraceptive method: partner vasectomy.Sexually ActiveFor sexually active, patient reportsyes: same partner.STI ScreenFor sti screen, patient reportsdeclines sti testing.Menstrual History/SymptomsFor menstrual cycle, patient reportsnormal menstrual cycle and flow.ROS as noted in the HPI ERIN WILSON [facility] [address], [place], [address], [facility] 07/25/2024 21:17:39 OBGyn Episode Ob Episode Information Episode Created Date Number of Fetuses Patient Bloodtype Patient rh Status Prepregnancy Weight lbs Domestic Partner Domestic Partner Phone Father Name Finished Cloth Examiner Status 10/01/19 25 1 CLOSED Fetus Data First Name Last Name Admitted to NICU Weight (g) Sex Living Outcome Pediatric Complications Fetus ID Race Codes Race Delivery Type M [id number] z_[place] Homero Calculation Initial Homero Date Initial Exam Date Initial Exam Provider Initial Ultrasound Date Last Menstrual Period Date Ultra Sound Weeks Gestation 0 Eighteen To Twenty Week Homero Update Ultra Sound Date Fundal Height At Umbil Quickening Date Ultra Sound Latest Weeks Gestation Final Homero Confirmed By Final Homero Confirmed Date Final Homero Date Ultra Sound Latest Days Gestation 0 0 Menstrual History Last Menstrual Date Menses Monthly On Bcp Conception Prior Menses Frequency Hcg Plus Date Menarche Onset Age Delivery Information Delivery Date Delivery Type Labor Anesthesia Weeks Gestation Incision Type Labor Labor Length Hrs Delivered By Post Complications Tubal Sterilization Discharge Date Comments 1 Regional-Ep idural 37 Effingha m , Came in early dialated : CS fetus_1_w eight_lbs : '6lbs 8oz'; Discharge Information Feeding Method Contraceptive Method Maternal HG B and HCT Levels Ob Episode Information Episode Created Date Number of Fetuses Patient Bloodtype Patient rh Status Prepregnancy Weight lbs Domestic Partner Domestic Partner Phone Father Name Finished Cloth Examiner Status 10/01/19 1 CLOSED Fetus Data First Name Last Name Admitted to NICU Weight (g) Sex Living Outcome Pediatric Complications Fetus ID Race Codes Race Delivery Type M [id number] z_[place] Section Homero Calculation Initial Homero Date Initial Exam Date Initial Exam Provider Initial Ultrasound Date Last Menstrual Period Date Ultra Sound Weeks Gestation 0 Eighteen To Twenty Week Homero Update Ultra Sound Date Fundal Height At Umbil Quickening Date Ultra Sound Latest Weeks Gestation Final Homero Confirmed By Final Homero Confirmed Date Final Homero Date Ultra Sound Latest Days Gestation 0 0 Menstrual History Last Menstrual Date Menses Monthly On Bcp Conception Prior Menses Frequency Hcg Plus Date Menarche Onset Age Delivery Information Delivery Date Delivery Type Labor Anesthesia Weeks Gestation Incision Type Labor Labor Length Hrs Delivered By Post Complications Tubal Sterilization Discharge Date Comments 7 General 40 Effing ham , failure to progress: baby de-celled emergency c-s fetus_1_w eight_lbs : '7lbs'; Discharge Information Feeding Method Contraceptive Method Maternal HG B and HCT Levels
--- OUTSIDE RECORDS SUMMARY | 2025-03-21 20:07 | XMS_ITS | Clinical Summary ---
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 There is no laboratory evidence of HCV infection. In most cases, no further action is required. However, if recent HCV exposure is suspected, a test for HCV RNA (test code 30165) is suggested. For additional information please refer to http://education.Wazoku/faq/AWZ53p6 (This link is being provided for informational/ educational purposes only.) THIS TEST WAS PERFORMED AT: [facility] [id number] [facility] [place] [address] BRYANT CULVER DO,MPH 02/26/2021 3:59 PM CDT 02/26/2021 3:59 PM CDT Meredith Lerner MD LABORATORY Final Result [facility] [address] [place] [address] from Last 3 Months or Most Recently Relevant to Health Maintenance [facility] Advance Directives Documents on File Type Date Recorded Patient Product Coordinator Expl anation Advance Directives and Living Will 08/09/2015 12:00 AM ADVANCED DIRECTIVES Care Teams Flag Football Coach Relationship Specialty Start Date End Date Savanah Davis FNP [address] [place] [address] PCP - General Nurse Practitioner Family 12/16/23
--- OUTSIDE RECORDS SUMMARY | 2025-03-21 20:07 | XMS_ITS | Encounter Summary ---
Author Organization [facility] Address [address] [place] [address] Care Team Providers Care Research Tech Name Role Phone Savanah Davis NP Primary Care Provider [phone] Encounter Details Date Type Department Care Team ([facility] st Contact Info) Description 03/21/2025 Results Follow-Up [address] [phone] Evelyne Farrell, DO [address] [place] [address] Pap and HPV, reflex to HPV Genotypes, SureSwab Advanced Vaginitis, TMA Social History Tobacco Use Types Packs/Day Years Used Date Smoking Tobacco: Never Smokeless Tobacco: Never PHQ-2 Answer Date Recorded PHQ-2 Total Score 0 03/15/2025 Comments Unknown Sex and Gender Information Value Date Recorded Sex Assigned at Not on file 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
--- OUTSIDE RECORDS SUMMARY | 2025-03-21 20:07 | XMS_ITS | Clinical Summary ---
Author Organization [facility] Address [address] [place] [address] Care Team Providers Care Educational Speech Language Clinician Name Role Phone Unavailable Primary Care Provider Unavailabl e Source Comments [facility],non-owned Affiliates and Associated Physician Practices is amultiple site organization consisting of ambulatory clinics and hospital sitesin [place], [place], [place] and [place]. This disclosure is being madepursuant to the Care Everywhere program and may not contain all information available regarding this patient. 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
--- OUTSIDE RECORDS SUMMARY | 2025-03-21 20:07 | XMS_ITS | Clinical Summary ---
Author Organization [facility] Address [address] [place] [address] Care Team Providers Care Flower Shop Laborer/Designer Name Role Phone Savanah Davis NP Primary Care Provider [phone] Allergies Active Allergy Reactions Criticality Noted Date [...] Department Care Team Description 03/21/2025 Results Follow-Up [facility] [address] [place] [phone] Evelyne Farrell DO Pap and HPV, reflex to HPV Genotypes, SureSwab Advanced Vaginitis, TMA 03/15/2025 10:00 AM CDT Office Visit [facility] [place] [facility] at [address] [place] [address] Evelyne Farrell DO Screen for [...] on file 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 Bx [facility] [place] Comment:NONE GIVEN SOURCE: [facility] [place] Comment:Cervix, Endocervix Pap, specimen adequacy [facility] [place] Comment: Satisfactory for evaluation. Endocervical/transformation zone component present. HPV interp [facility] [place] Comment: Cytology Results: Negative for intraepithelial lesion or malignancy. Infection: [facility] [place] Comment: Trichomonas vaginalis identified. Shift in vaginal norberto suggestive of bacterial vaginosis. COMMENTS [facility] [place] Comment: This Pap test has been evaluated with the ThinPrep(R) Imaging System. Licensing Officer [facility] [place] Comment: FCB, CT(ASCP) CT screening location: [facility], [address] [place] [address] [address], [place] [address] Apron Man: JOSÉ HOUGH MD, CLIA: [id number] Comment [facility] [place] Comment: EXPLANATORY NOTE: The Pap is a [...] High Risk E6/E7 Not Detected NOT DETECTED [facility] Comment: Not Detected High Risk HPV types (16,18,31,33,35,39,45,51,52, 56,58,59,66,68) were not detected. Other HPV types which cause anogenital lesions may be present. The significance of the other types of HPV in malignant processes has not been established. Methodology: Real Time PCR Thin prep-Endocervica l 03/15/2025 3:27 PM CDT 03/16/2025 3:02 PM CDT Evelyne Farrell DO LAB CYTOLOGY ORDERABLES Final Result Performing Organization Address City/[facility]/ZIP Co de Phone Number [facility] [place] [address] [address] [facility] [place] [address] [place] [address] * (ABNORMAL) Sureab Advanced Vaginitis, TMA (03/15/2025 3:27 PM CDT) SureSwab(R) ADV Bacterial vaginosis (BV), TMA POSITIVE(A) NEGATIVE [facility] Vilma species NOT DETECTED NOT DETECTED [facility] Vilma glabrata NOT DETECTED NOT DETECTED [facility] Comment: Vilma species C. albicans, C. tropicalis, C. parapsilosis, and/or C. dubliniensis can be detected, but not differentiated, in the Vilma spp. result. Trichomonas vaginalis (TV), TMA DETECTED(A) NOT DETECTED [facility] 03/15/2025 3:27 PM CDT 03/16/2025 3:02 PM CDT us Evelyne Farrell DO LAB MICROBIOLOGY - GENE RAL ORDERABLES Final Result Performing Organization Address City/[facility]/ZIP Co de Phone Number [facility] [address] [place] [address] from Last 3 Months Insurance [facility] Care Teams Flower Shop Laborer/Designer Relationship Specialty Start Date End Date Savanah Davis NP [address] [place] [address] [place] [address] PCP - General Family Practice 10/28/24
[2025-03-21 20:26] LABS: Alanine Aminotransferase 162 U/L (6-35); Albumin Level 4.7 g/dL (3.5-5.1); Alkaline Phosphatase 63 U/L (38-126); Anion Gap 11 mmol/L (4-12); Aspartate Amino Transferase 220 U/L (14-36); Bilirubin,Total 0.7 mg/dL (0.2-1.3); Blood Urea Nitrogen 23 mg/dL (7-17); Calcium 9.4 mg/dL (8.4-10.2); Carbon Dioxide 26 mmol/L (22-30); Chloride 101 mmol/L (98-107); Estimated Glomerular Filt Rate > 60; Glucose 96 mg/dL (65-110); Lipase 1651 U/L (23-300); Potassium 4.1 mmol/L (3.4-5.0); Sodium 138 mmol/L (137-145); Total Protein 7.7 g/dL (6.3-8.2)
== END 2025-03-21 20:16 | disposition home or self-care (01) ==
PROVIDERS: Emergency Provider Student in an Organized Health Care Education/Training Program
DX: K80.20 Calculus of gallbladder without cholecystitis without obstruction (principal)
CPT/HCPCS: 36415; 76705; 80053; 81003; 81025; 83690; 85025; 99284

== ENCOUNTER 2025-03-21 21:52 | Observation (INO) | payer OTHER, SELFPAY ==
--- NOTE | ~2025-03-21 | MR_ITS ---
EXAM/PROCEDURE: MR MRCP wo/w con/w 3D wo ind HISTORY: r/o choledocholithiasis COMPARISON: Ultrasound from March 21 TECHNIQUE: Pre and postcontrast multiplanar abdominal MRI performed with MRCP technique. FINDINGS: Small amount of tiny gallstones and layering sludge noted in the dependent gallbladder with no gross wall thickening or pericholecystic fluid. The common bile duct approaching the pancreatic uncinate region is upper limits normal measuring up to 6.3 mm, although this area is somewhat obscured by motion artifact. No choledocholithiasis clearly identified. Intrahepatic ducts are normal in appearance and size. Pancreas appears normal. 2 enhancing lesions are seen in the posterior segment of the right lobe of the liver with the largest in the dome region measuring 1.5 cm as seen on image 275 series 14. A smaller lesion also in the right lobe measuring 7.9 mm seen on image 295 series 14. The remainder of the liver spleen pancreas adrenal glands and kidneys appear normal. The remainder the exam is unremarkable. IMPRESSION: 1. Cholelithiasis with extrahepatic biliary duct upper limits normal in size but no choledocholithiasis; intrahepatic ducts are normal in size. 2. Enhancing lesions in the right lobe of the liver may represent benign adenomas. These should be considered LI-RADS 3 category lesions. Follow-up imaging with liver protocol CT or MRI recommended in 6 months or sooner if clinically appropriate. Reviewed, dictated and finalized at location A. EE SAMPLER IMPRESSION: 1. Cholelithiasis with extrahepatic biliary duct upper limits normal in size bu t no choledocholithiasis; intrahepatic ducts are normal in size. 2. Enhancing lesions in the right lobe of the liver may represent benign adenom as. These should be considered LI-RADS 3 category lesions. Follow-up imaging wi liver protocol CT or MRI recommended in 6 months or sooner if clinically timothy ropriate.
--- OUTSIDE RECORDS SUMMARY | 2025-03-21 21:55 | XMS_ITS | Clinical Summary ---
Author Organization [facility] Address [address] [place] [address] Care Team Providers Care Revenue Integrity Analyst Name Role Phone Savanah Davis NP Primary Care Provider [phone] Allergies Active Allergy Reactions Criticality Noted Date [...] Department Care Team Description 03/21/2025 Results Follow-Up [facility] [address] [place] [phone] Evelyne Farrell DO Pap and HPV, reflex to HPV Genotypes, SureSwab Advanced Vaginitis, TMA 03/15/2025 10:00 AM CDT Office Visit [facility] [place] [facility] at [address] [place] [address] Evelyne Farrell DO Screen for [...] on file 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 Bx [facility] Comment:NONE GIVEN SOURCE: [facility] Comment:Cervix, Endocervix Pap, specimen adequacy [facility] Comment: Satisfactory for evaluation. Endocervical/transformation zone component present. HPV interp [facility] Comment: Cytology Results: Negative for intraepithelial lesion or malignancy. Infection: [facility] Comment: Trichomonas vaginalis identified. Shift in vaginal norberto suggestive of bacterial vaginosis. COMMENTS [facility] Comment: This Pap test has been evaluated with the ThinPrep(R) Imaging System. [facility] Tab [facility] In [facility] Comment: FCB, CT(ASCP) CT screening location: [facility], [address] [place] [address] [address], [place] [address] Hydro Plant Technician: JOSÉ HOUGH MD, CLIA: [id number] Comment [facility] Comment: EXPLANATORY NOTE: The Pap is a [...] High Risk E6/E7 Not Detected NOT DETECTED [facility] Comment: Not Detected High Risk HPV types (16,18,31,33,35,39,45,51,52, 56,58,59,66,68) were not detected. Other HPV types which cause anogenital lesions may be present. The significance of the other types of HPV in malignant processes has not been established. Methodology: Real Time PCR Thin prep-Endocervica l 03/15/2025 3:27 PM CDT 03/16/2025 3:02 PM CDT Evleyne Farrell DO LAB CYTOLOGY ORDERABLES Final Result Performing Organization Address City/[facility]/ZIP Co de Phone Number [facility] [place] [address] [address] [facility] [place] [address] [place] [address] * (ABNORMAL) Sureab Advanced Vaginitis, TMA (03/15/2025 3:27 PM CDT) SureSwab(R) ADV Bacterial vaginosis (BV), TMA POSITIVE(A) NEGATIVE [facility] Vilma species NOT DETECTED NOT DETECTED [facility] Vilma glabrata NOT DETECTED NOT DETECTED [facility] Comment: Vilma species C. albicans, C. tropicalis, C. parapsilosis, and/or C. dubliniensis can be detected, but not differentiated, in the Vilma spp. result. Trichomonas vaginalis (TV), TMA DETECTED(A) NOT DETECTED [facility] 03/15/2025 3:27 PM CDT 03/16/2025 3:02 PM CDT us Evelyne Farrell DO LAB MICROBIOLOGY - GENE RAL ORDERABLES Final Result Performing Organization Address City/[facility]/ZIP Co de Phone Number [facility] [address] [place] [address] from Last 3 Months [facility] Care Teams Revenue Integrity Analyst Relationship Specialty Start Date End Date Savanah Davis NP [address] [place] [address] [place] [address] PCP - General Family Practice 10/28/24
--- OUTSIDE RECORDS SUMMARY | 2025-03-21 21:55 | XMS_ITS | Clinical Summary ---
Author Organization [facility] [email or web address] Address [address] [place] [address] Care Team Providers Care Cap Parts Cutter Name Role Phone Unavailable Primary Care Provider Unavailabl e Source Comments [facility],non-owned Affiliates and Associated Physician Practices is amultiple site organization consisting of ambulatory clinics and hospital sitesin [place], [place], [place] and [place]. This disclosure is being madepursuant to the Care Everywhere program and may not contain all information available regarding this patient. 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
--- OUTSIDE RECORDS SUMMARY | 2025-03-21 21:55 | XMS_ITS | Encounter Summary ---
Author Organization [facility] Healthcare Address [address] [place] [address] Care Team Providers Care Key Cutter Name Role Phone Savanah Davis NP Primary Care Provider [phone] Encounter Details Date Type Department Care Team ([facility] st Contact Info) Description 03/21/2025 Results Follow-Up [address] [id number] Evelyne Farrell, DO [address] [place] [address] Pap and HPV, reflex to HPV Genotypes, SureSwab Advanced Vaginitis, TMA Social History Tobacco Use Types Packs/Day Years Used Date Smoking Tobacco: Never Smokeless Tobacco: Never PHQ-2 Answer Date Recorded PHQ-2 Total Score 0 03/15/2025 Comments Unknown Sex and Gender Information Value Date Recorded Sex Assigned at Not on file 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
--- OUTSIDE RECORDS SUMMARY | 2025-03-21 21:55 | XMS_ITS | Clinical Summary ---
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 There is no laboratory evidence of HCV infection. In most cases, no further action is required. However, if recent HCV exposure is suspected, a test for HCV RNA (test code 86878) is suggested. For additional information please refer to http://education.Scayl/faq/MJW90a5 (This link is being provided for informational/ educational purposes only.) THIS TEST WAS PERFORMED AT: [facility] [address] [facility] [place] [address] BRYANT CULVER DO,MPH 02/26/2021 3:59 PM CDT 02/26/2021 3:59 PM CDT Meredith Lerner MD LABORATORY Final Result [facility] [address] [place] [address] from Last 3 Months or Most Recently Relevant to Health Maintenance [facility] Advance Directives Documents on File Type Date Recorded Patient Tool/Die Maker Expl anation Advance Directives and Living Will 08/09/2015 12:00 AM ADVANCED DIRECTIVES Care Teams Central Office Technician Relationship Specialty Start Date End Date Savanah Davis FNP [address] [place] [id number] PCP - General Nurse Practitioner Family 12/16/23
[2025-03-21 21:56] VITALS: BP 126/76; PULSE 73; RESP 15; TEMP 36.4; O2SAT 99
--- NOTE | 2025-03-21 22:07 | ED.RECABL ---
HPI - Recheck/Abnormal Lab/Rx General Chief Complaint: Recheck/Abnormal Lab/Rx Stated Complaint: recheck/abnormal labs Time Seen by Provider: 03/21/25 21:57 History of Present Illness HPI narrative: Patient seen here earlier today and called back in due to abnormal labs. Per HPI earlier: This is a 39-year-old female with no significant past medical history who presents the ED for abdominal pain. Patient states that she arrived at the gym when she had sudden onset right upper quadrant abdominal pain. She tried to have bowel movement but the pain worsened. Lasted about 2 hours until her arrived in the parking lot of the ED when it improved. She reports some mild soreness to the right upper quadrant this time. She has C-sections in the past but still has her gallbladder and appendix. Denies any fevers, chills, chest pain. She did have nausea but this has resolved. Related Data Home Medications ?Medication ?Instructions ?Recorded ?Confirmed ?Last Taken ?Type venlafaxine 75 mg capsule,extended 7 mg PO DAILY 04/30/22 05/13/22 05/13/22 History release 24 hr Allergies Allergy/AdvReac Type Severity Reaction Status Date / Time Sulfa (Sulfonamide Allergy Intermediate Hives Verified 05/13/22 06:27 Antibiotics) Review of Systems Review of Systems: Gen.: Denies fevers or chills Eyes: Denies eye pain or visual change ENT: Denies congestion Respiratory: Denies shortness of breath or cough CV: Denies chest pain or palpitations GI: As per HPI denies burning, urgency, frequency or hematuria Musculoskeletal: Denies back pain or muscle pain Neuro: Denies numbness, tingling, weakness or focal weakness Skin: Denies rash Except as documented, all other systems reviewed and negative [facility], [facility] Social History Social History Alcohol use details: socially Living arrangements: with family Spiritual care concerns: No Exam Narrative: APPEARANCE: No acute distress, nontoxic, resting in bed EYES: EOMI HEENT: Normocephalic, atraumatic, OMM RESPIRATORY: No respiratory distress Clear to auscultation bilaterally with no rhonchi wheezing or rales. CARDIOVASCULAR: Regular rate and rhythm without murmurs rubs or gallops. ABDOMINAL: Soft, right upper quadrant tenderness to palpation with positive Chase sign, nondistended, no rebound or guarding MUSCULOSKELETAl: Moves all extremities. No clubbing, cyanosis or edema. NEURO: Awake and alert. Following commands, speech normal, no focal deficits SKIN:: Warm, dry. No rashes lesions or abrasions PSYCHIATRIC: Normal affect/mood, Course Vital Signs Vital signs: Vital Signs Temperature 97.5 F L 03/21/25 21:56 Pulse Rate 73 03/21/25 21:56 Respiratory Rate 15 03/21/25 21:56 Blood Pressure 126/76 03/21/25 21:56 Pulse Oximetry 99 03/21/25 21:56 Oxygen Delivery Room Air 03/21/25 21:56 Temperature 97.5 F L 03/21/25 21:56 Pulse Rate 73 03/21/25 21:56 Respiratory Rate 15 03/21/25 21:56 Blood Pressure 126/76 03/21/25 21:56 Pulse Oximetry 99 03/21/25 21:56 Oxygen Delivery Room Air 03/21/25 21:56 MDM - Recheck/Abnormal Lab/Rx MDM Narrative Medical decision making narrative: 39-year-old female Presenting for right upper quadrant abdominal pain. On initial evaluation patient was in no acute distress afebrile, hemodynamic stable. Patient seen earlier today same symptoms and found cholelithiasis. Lipase was elevated at 1600 and AST and ALT were elevated but T bili within normal limits. Spoke with Dr. Craft, GI recommends 1.5 L LR with 125 cc/hour maintenance and will do MRCP in the morning. Discussed case with hospitalist who will admit the patient. Medical Records Attestation: I reviewed the patient's medical records. Lab Data Attestation: I reviewed the patient's lab results. Discharge Plan Discharge Clinical Impression: Choledocholithiasis Pancreatitis Qualifiers: Chronicity: acute Pancreatitis type: drug induced Acute pancreatitis complication: unspecified Qualified Code(s): K85.30 - Drug induced acute pancreatitis without necrosis or infection Patient Disposition: Still a Patient Condition: Stable Patient Language: Solomon Islander Prescriptions: No Action venlafaxine 75 mg capsule,extended release 24hr 7 mg PO DAILY doxycycline hyclate 100 mg capsule 100 mg PO BID Qty: 14 0RF hydrocodone-acetaminophen 5-325 mg tablet 1 tablet PO Q6H PRN (Reason: pain) Qty: 6 0RF ibuprofen 600 mg tablet 600 mg PO Q6H PRN (Reason: fever or pain) Qty: 30 0RF Follow-up/Referrals: PHYSICIAN NOT ON STAFF,NONSTAFF [Primary Care Provider]
[2025-03-21] MEDS: LACTATED RINGERS 1,000 ML 999 ML IV CONT (22:37)
[2025-03-21] MEDS: LACTATED RINGERS 900 ML 999 ML IV CONT (22:38)
--- NOTE | 2025-03-21 22:47 | P.HP_ITS ---
H&P: HPI History of Present Illness Date/Time: 03/21/25 22:47 Chief Complaint: Abdominal Pain Narrative: 39 y/o F with PMH of anxiety and presents here with abdominal pain. The patient presented here on 03/21 for further evaluation of abdominal pain. She reports acute onset of abdominal pain while she was at the gym. She describes the abdominal pain as right upper quadrant, sharp, nonradiating, initially constant now resolved, and no improvement with bowel movement. Pain was severe for approximately 2 hours then suddenly improved without intervention. She reports accompanying nausea without vomiting and diaphoresis. Pain had her doubled over. She denies fever, chills, body aches, chest pain. No previous history of gallstones or cholecystectomy. Initial VS at presentation: 97.5? F, HR 73, RR 15, 126/76, and 99% on RA. ED workup showed: No leukocytosis, no anemia, no significant electrolyte derangements, creatinine 0.8 and GFR >60, AST 220, ALT 162, total bilirubin within normal limits, lipase 1651, and UA unremarkable. Ultrasound of the right upper quadrant so cholelithiasis, mild gallbladder distension, without GB wall thickening or pericholecystic fluid, negative Chase sign. Review of Systems Review of Systems: All systems reviewed & are unremarkable except as noted in HPI and below PMFSH Past Medical History Medical History Anxiety Surgical History Surgical History History of section History of tonsillectomy Social History Social History Alcohol use details: socially Living arrangements: with family Spiritual care concerns: No Meds Home Medications and Allergies Home Medications ?Medication ?Instructions ?Recorded ?Confirmed ?Type venlafaxine 75 mg capsule,extended 7 mg PO DAILY 04/3005/13/22 History release 24 hr doxycycline hyclate 100 mg capsule 100 mg PO BID #14 c aps 05/13/22 Rx hydrocodone 5 mg-acetaminophen 325 1 tablet PO Q6H PRN pain #6 tabs 05/13/22 Rx mg tablet ibuprofen 600 mg tablet 600 mg PO Q6H PRN fever or p ain 05/13/22 Rx #30 tabs Allergies Allergy/AdvReac Type Severity Reaction Status Date / Time Sulfa (Sulfonamide Allergy Intermediate Hives Verified 05/13/22 06:27 Antibiotics) Vital Signs Vital Signs - 24 hr 03/21/25 21:56 Temperature 97.5 F L Pulse Rate 73 Respiratory Rate 15 Blood Pressure 126/76 Pulse Oximetry 99 Oxygen Delivery Room Air Exam Const: General: comfortable and no acute distress Other: , female, nontoxic appearance HENMT: Face/Nose/Sinus: Normal nares present Mouth: Yes moist mucous membranes Eyes: General: appearance normal, both eyes and all related structures Sclera: sclerae normal Pupils: Equal, round and reactive pupils present EOM: EOMs intact bilaterally Resp: Effort & Inspection: normal respiratory effort Auscultation: clear to auscultation bilaterally Cardio: Rate: regular rate Rhythm: regular rhythm Other: S1-S2 present without murmur, rub, ectopy GI: Other: Abdomen soft, nondistended. Mild tenderness in the right upper quadrant. Normoactive bowel sounds in all quadrants. Skin: General skin exam: normal color and no rashes or lesions noted Wounds: no wounds Neuro: Speech: normal speech Motor exam (neuro): 5/5 motor strength present throughout Sensory Exam: normal sensation Other: A&O x4 Extrem: General: normal to inspection Psych: Mental Status: mental status grossly normal Affect: normal affect Other: good insight and judgment, pleasant Assessment and Plan Assessment and plan (1) Choledocholithiasis: Code(s): K80.50 - Calculus of bile duct without cholangitis or cholecystitis without obstruction Status: Acute Assessment and Plan: Patient reported acute onset of right upper quadrant pain day of admission, 03/21. Ultrasound of the RUQ showed cholelithiasis without GB wall thickening or pericholecystic fluid, negative Chase sign. Patient also noted to have an elevated lipase and mild transaminitis. Patient suspected to have choledocholithiasis. ED provider spoke with on-call GI physician, Kristie WONG, who recommended IV fluids and plan for MRCP in the morning. - MRCP on 03/22 - regular diet, NPO midnight - analgesics p.r.n. - antiemetics p.r.n. (2) Pancreatitis: Qualifiers: Acute pancreatitis complication: unspecified Chronicity: acute Pancreatitis type: drug induced Qualified Code(s): K85.30 - Drug induced acute pancreatitis without necrosis or infection Code(s): K85.90 - Acute pancreatitis without necrosis or infection, unspecified Status: Acute Assessment and Plan: Lipase 1651. Patient has ultrasound and clinical picture concerning for choledocholithiasis. Likely biliary pancreatitis. However patient is on Zepbound which could also contribute. - regular diet, NPO midnight - analgesics p.r.n. - check lipid panel - counseled to stop Zepbound (3) Transaminitis: Code(s): R74.01 - Elevation of levels of liver transaminase levels Status: Acute Assessment and Plan: Mild transaminitis noted upon admission. AST 228, ALT 162 with a normal total bilirubin/alk-phos. Clinical pictures/imaging concerning for choledocholithiasis. Plan for MRCP tomorrow. - trend LFTs Plan Diet: Regular, NPO midnight GI Prophylaxis: n/a DVT Prophylaxis: SCDs IV fluids: 2L bolus -> LR 125 mL/hour Lines/Tubes: Peripheral IV Code Status: Full code Quality VTE Prophylaxis VTE prophylaxis: mechanical ordered Hospitalist [facility] Advance Care Plan I have confirmed that the patient's Advanced Care Plan is present, code status is documented, or surrogate decision maker is listed in patient medical record.: Yes Medication Reconciliation I have utilized all available resources to obtain, update and review the patients current medications (includes all prescriptions, OTC, herbals, cannabis, and nutritional supplements).: Yes
[2025-03-21 23:32] VITALS: BP 108/74; PULSE 67; RESP 16; TEMP 36.5; O2SAT 100
[2025-03-21 23:41] VITALS: BMI 22.9
[2025-03-22] VITALS (8 sets, daily range): BP systolic 101–123; BP diastolic 56–75; PULSE 61–80; RESP 14–18; TEMP 36.3–36.7; O2SAT 94–100
[2025-03-22] MEDS: LACTATED RINGERS 1,000 ML 125 ML IV CONT (00:22)
[2025-03-22 06:18] LABS: Hematocrit 39.2 % (37.0-47.0); Hemoglobin 13.2 g/dL (12.0-15.0); Immature Granulocyte Percent A 0.1 % (0-0.5); Lymphocytes Absolute Auto 3.10 K/mm3 (0.9-3.2); Mean Corpuscular HGB Conc 33.7 g/dl (32-36); Mean Corpuscular Hemoglobin 30.9 pg (26-34); Mean Corpuscular Volume 91.8 fl (80-100); Nucleated Red Blood Cells Absolute Auto 0.000 K/mm3 (0.0-0.012); Nucleated Red Blood Cells Perc 0.0 % (0.0-0.2); Platelet Count Result 204 k/mm3 (150-375); Red Blood Count 4.27 M/mm3 (4.2-5.4); White Blood Count 7.9 K/mm3 (4.5-10.0)
[2025-03-22 06:45] LABS: Alanine Aminotransferase 135 U/L (6-35); Albumin Level 3.5 g/dL (3.5-5.1); Alkaline Phosphatase 47 U/L (38-126); Anion Gap 5 mmol/L (4-12); Aspartate Amino Transferase 102 U/L (14-36); Bilirubin,Total 0.4 mg/dL (0.2-1.3); Blood Urea Nitrogen 17 mg/dL (7-17); Calcium 8.3 mg/dL (8.4-10.2); Carbon Dioxide 24 mmol/L (22-30); Chloride 107 mmol/L (98-107); Cholesterol 101 mg/dL (0-200); Estimated CRCL calculation 73 ml/min; Estimated Glomerular Filt Rate > 60; Glucose 82 mg/dL (65-110); HDL Direct 45 mg/dL; Lipase 473 U/L (23-300); Potassium 3.9 mmol/L (3.4-5.0); Sodium 136 mmol/L (137-145); Total Protein 6.0 g/dL (6.3-8.2); Triglycerides 51 mg/dL (<150)
[2025-03-22] MEDS: LACTATED RINGERS 1,000 ML 100 ML IV CONT ×2 (08:45→16:36)
--- NOTE | 2025-03-22 10:27 | PM.CNGS ---
Assessment and Plan Assessment and plan (1) Cholelithiasis: Code(s): K80.20 - Calculus of gallbladder without cholecystitis without obstruction Status: Acute Assessment and Plan: Patient presented to the hospital yesterday with RUQ pain that started earlier in evening. She was feeling better and was sent home from the ED, but was then called to return to the hospital as her labs came back abnormal. Lipase was elevated to 1651 and liver enzymes were elevated. Normal bili. GI was consulted and patient started on IV fluids. Planning MRCP today. Patient is mildly tender to RUQ on exam. Denies any nausea or vomiting today. I discussed with her that she will likely need her gallbladder taken out to prevent future recurrences. Discussed with surgeon who agrees. Option for laparoscopic cholecystectomy today with IOC. She would like to discuss with her and reach out to her HR department to see if she has PTO available. (2) Pancreatitis: Qualifiers: Acute pancreatitis complication: unspecified Chronicity: acute Pancreatitis type: drug induced Qualified Code(s): K85.30 - Drug induced acute pancreatitis without necrosis or infection Code(s): K85.90 - Acute pancreatitis without necrosis or infection, unspecified Status: Acute Assessment and Plan: Lipase 1651 yesterday, now down to 473. Patient states she is feeling much better today. Could have likely been due to a stone that passed. Will plan for MRCP or lap shayla with IOC today to further evaluate. Plan Discussed patient's case and plan of care with Dr. Farris. History of Present Illness Consult details Consult date: 03/22/25 Reason for consult: other (cholelithiasis) Requesting physician: Nehemias Flowers MD Narrative: Patient is a 39 year old otherwise healthy female who we have been asked to see in surgical consultation for cholelithiasis. Patient states that she first noted abdominal pain while at the gym yesterday evening. She initially thought that it was gas pain, but as she continued to work out it localized more to her right upper quadrant. She ended up leaving the gym as she was doubled over in pain at this time. Her brought her to urgent care in [place], but they were unable to see her. She then was brought to [place] ED. She states that by the time she arrived, the pain was essentially gone. She still decided to be seen in the ED and was sent home with referral to outpatient general surgery office. However, later in the evening patient was then instructed to return to the ED due to abnormal labs. Lipase was 1651 with elevated AST/ALT. Normal bili. RUQ US demonstrated cholelithiasis. Mildly distended gallbladder. No wall thickening or pericholecystic fluid. GI was consulted, who later consulted general surgery team. Upon today's interview, patient has minimal abdominal pain. Denies nausea or vomiting. Last BM was yesterday evening while patient was at the gym. Patient states that she ate a protein bar before the gym and earlier ini the day she had chili for lunch. She has been taking Zepbound for over a year. Previous abdominal surgeries include two c-sections. States that she was told she had some gallbladder issues over 10 years ago, but never had further workup and never had any recurrent episodes until now. Labs today revealed normal WBC. AST/ALT decreased to 102 and 135, respectively. Lipase decreased to 473. Afebrile. FORMERLY [facility], [facility]–1983 Past Medical History Medical History Anxiety Surgical History Surgical History History of section History of tonsillectomy Family History Family History (Updated 03/22/25 @ 00:11 by Raffi Kauffman RN) Other Cerebral infarct Myocardial infarct Other Myocardial infarct Other CABG (coronary artery bypass graft) planned Father Multiple myeloma Social History Social History Smoking status: Never smoker Alcohol intake: never Alcohol use details: socially Substance use: never Lack of Transportation: No Lack of Food: Never True Current Housing: I Have Housing Concerned About Future Housing: No Difficulty Paying Gas/Electric Bills: No Difficulty Paying for Meds: No Currently Unemployed: No Education: Bachelor's Degree Difficulty w/ Childcare or Family Care: No Living arrangements: with family Spiritual care concerns: No Meds Home Medications and Allergies Home Medications ?Medication ?Instructions ?Recorded ?Confirmed ?Type cetirizine 10 mg tablet (24Hour 10 mg PO DAILY 03/22/25 03/22/25 History Allergy) docusate sodium 50 mg capsule 50 mg PO DAILY 03/22/25 03/22/25 History tirzepatide (weight loss) 2.5 2.5 mg subcut WEEKLY 03/22/25 03/22/25 History mg/0.5 mL subcutaneous pen injector (Zepbound) vitamin B complex 1 cap PO DAILY 03/22/25 03/22/25 History Allergies Allergy/AdvReac Type Severity Reaction Status Date / Time Sulfa (Sulfonamide Allergy Intermediate Hives Verified 03/22/25 00:17 Antibiotics) Vital Signs Vital Signs - 24 hr 03/21/25 21:56 03/21/25 23:32 03/22/25 00:04 Temperature 97.5 F L 97.7 F 97.4 F L Pulse Rate 73 67 80 Respiratory Rate 15 16 18 Blood Pressure 126/76 108/74 123/75 Pulse Oximetry 99 100 100 Oxygen Delivery Room Air Room Air Fraction of Inspired Oxygen 03/22/25 00:20 03/22/25 05:18 03/22/25 08:21 Temperature 97.5 F L Pulse Rate 80 76 61 Respiratory Rate 18 16 Blood Pressure 112/68 Pulse Oximetry 100 99 99 Oxygen Delivery Room Air Room Air Fraction of Inspired Oxygen 21 Exam Const: General: comfortable and no acute distress Eyes: General: appearance normal, both eyes and all related structures Neck: Neck: supple Resp: Effort & Inspection: normal respiratory effort Cardio: Rate: regular rate GI: Inspection: non-distended GI Palp: Yes Soft to palpation, Yes Tenderness to palpation present (GI) (mild tenderness to RUQ) and No Guarding due to palpation present (GI) Auscultation: normal bowel sounds Skin: General skin exam: normal color and no rashes or lesions noted Extrem: General: normal to inspection Psych: Mental Status: mental status grossly normal Results Labs 03/22/25 06:04 03/22/25 06:04 Labs: Abnormal lab results 03/22/25 Range/Units 06:04 [place] % (Auto) 8.8 H (2.6-8.5) % Eos % (Auto) 5.6 H (0-4.4) % [place] # (Auto) 0.7 H (0.1-0.6) K/mm3 Eos # (Auto) 0.4 H (0-0.3) K/mm3 Sodium 136 L (137-145) mmol/L Calcium 8.3 L (8.4-10.2) mg/dL AST 102 H (14-36) U/L ALT 135 H (6-35) U/L Total Protein 6.0 L (6.3-8.2) g/dL Lipase 473 H (23-300) U/L Diabetes panel 03/22/25 Range/Units 06:04 Sodium 136 L (137-145) mmol/L Potassium 3.9 (3.4-5.0) mmol/L Chloride 107 (98-107) mmol/L Carbon Dioxide 24 (22-30) mmol/L BUN 17 (7-17) mg/dL Creatinine 0.86 (0.7-1.0) mg/dL Glucose 82 (65-110) mg/dL Calcium 8.3 L (8.4-10.2) mg/dL AST 102 H (14-36) U/L ALT 135 H (6-35) U/L Alkaline Phosphatase 47 (38-126) U/L Total Protein 6.0 L (6.3-8.2) g/dL Albumin 3.5 (3.5-5.1) g/dL Triglycerides 51 (<150) mg/dL Calcium panel 03/22/25 Range/Units 06:04 Calcium 8.3 L (8.4-10.2) mg/dL Albumin 3.5 (3.5-5.1) g/dL Pituitary panel 03/22/25 Range/Units 06:04 Sodium 136 L (137-145) mmol/L Potassium 3.9 (3.4-5.0) mmol/L Chloride 107 (98-107) mmol/L Carbon Dioxide 24 (22-30) mmol/L BUN 17 (7-17) mg/dL Creatinine 0.86 (0.7-1.0) mg/dL Glucose 82 (65-110) mg/dL Calcium 8.3 L (8.4-10.2) mg/dL Adrenal panel 03/22/25 Range/Units 06:04 Sodium 136 L (137-145) mmol/L Potassium 3.9 (3.4-5.0) mmol/L Chloride 107 (98-107) mmol/L Carbon Dioxide 24 (22-30) mmol/L BUN 17 (7-17) mg/dL Creatinine 0.86 (0.7-1.0) mg/dL Glucose 82 (65-110) mg/dL Calcium 8.3 L (8.4-10.2) mg/dL Total Bilirubin 0.4 (0.2-1.3) mg/dL AST 102 H (14-36) U/L ALT 135 H (6-35) U/L Alkaline Phosphatase 47 (38-126) U/L Total Protein 6.0 L (6.3-8.2) g/dL Albumin 3.5 (3.5-5.1) g/dL All other labs normal.
--- NOTE | 2025-03-22 15:26 | P.PNIM_ITS ---
Progress Note: A&P Assessment and Plan (1) Choledocholithiasis: Code(s): K80.50 - Calculus of bile duct without cholangitis or cholecystitis without obstruction Status: Acute Assessment and Plan: Patient reported acute onset of right upper quadrant pain day of admission, 03/21. Ultrasound of the RUQ showed cholelithiasis without GB wall thickening or pericholecystic fluid, negative Chase sign. Patient also noted to have an elevated lipase and mild transaminitis. Patient suspected to have choledocholithiasis. ED provider spoke with on-call GI physician, Kristie WONG, who recommended IV fluids and plan for MRCP in the morning. * MRCP was scheduled 03/22 can not be performed until 03/23 * Full liquid, NPO midnight * analgesics p.r.n. * antiemetics p.r.n. * Plan for outpatient cholecystectomy if MRCP shows no blockage * Continue to trend lipase and liver enzymes (2) Pancreatitis: Qualifiers: Acute pancreatitis complication: unspecified Chronicity: acute Pancreatitis type: drug induced Qualified Code(s): K85.30 - Drug induced acute pancreatitis without necrosis or infection Code(s): K85.90 - Acute pancreatitis without necrosis or infection, unspecified Status: Acute Assessment and Plan: Lipase 1651. Patient has ultrasound and clinical picture concerning for choledocholithiasis. Likely biliary pancreatitis. However patient is on Zepbound which could also contribute. * Full liquid, NPO midnight * analgesics p.r.n. * check lipid panel * counseled about possible effects of zepbound (3) Transaminitis: Code(s): R74.01 - Elevation of levels of liver transaminase levels Status: Acute Assessment and Plan: Mild transaminitis noted upon admission. AST 228, ALT 162 with a normal total bilirubin/alk-phos. Clinical pictures/imaging concerning for choledocholithiasis. Plan for MRCP tomorrow. * trend LFTs Plan Code status: Full code per patient DVT prophylaxis: SCDs Stress ulcer prophylaxis: NA PT/OT notes: NA Disposition: Patient continues admission for possible cholelithiasis pending MRCP and acute pancreatitis, unable to perform MRCP today plan for tomorrow morning if no obstruction plan for outpatient cholecystectomy. Time Spent With Patient Time with patient: 15 - 25 minutes Subjective Date/time seen: 03/22/25 15:26 Interval history: Patient is 39-year-old female admitted for acute pancreatitis and cholelithiasis with consult to General surgery. 03/22/2025: Patient currently in no acute distress no new complaints ulnar reports mild tenderness to abdomen denies any nausea vomiting, fevers or chills. Review of Systems Review of Systems: All systems reviewed & are unremarkable except as noted in HPI and below Exam Const: General: comfortable and no acute distress Other: , female, nontoxic appearance HENMT: Face/Nose/Sinus: Normal nares present Mouth: Yes moist mucous membranes Eyes: General: appearance normal, both eyes and all related structures Sclera: sclerae normal Pupils: Equal, round and reactive pupils present EOM: EOMs intact bilaterally Resp: Effort & Inspection: normal respiratory effort Auscultation: clear to auscultation bilaterally Cardio: Rate: regular rate Rhythm: regular rhythm Other: S1-S2 present without murmur, rub, ectopy GI: Other: Abdomen soft, nondistended. Mild tenderness in the right upper quadrant. Normoactive bowel sounds in all quadrants. Skin: General skin exam: normal color and no rashes or lesions noted Wounds: no wounds Neuro: Cranial nerves: Yes Equal, round and reactive pupils present Speech: normal speech Motor exam (neuro): 5/5 motor strength present throughout Sensory Exam: normal sensation Other: A&O x4 Extrem: General: normal to inspection Psych: Mental Status: mental status grossly normal Affect: normal affect Other: good insight and judgment, pleasant Objective Data Vital Signs Vital Signs: Vital Signs - 24 hr 03/21/25 21:56 03/21/25 23:32 03/22/25 00:04 Temperature 97.5 F L 97.7 F 97.4 F L Pulse Rate 73 67 80 Respiratory Rate 15 16 18 Blood Pressure 126/76 108/74 123/75 Pulse Oximetry 99 100 100 Oxygen Delivery Room Air Room Air Fraction of Inspired Oxygen 03/22/25 00:20 03/22/25 05:18 03/22/25 08:00 Temperature 97.5 F L Pulse Rate 80 76 61 Respiratory Rate 18 16 16 Blood Pressure 112/68 Pulse Oximetry 100 99 99 Oxygen Delivery Room Air Room Air Fraction of Inspired Oxygen 21 03/22/25 08:21 Temperature Pulse Rate 61 Respiratory Rate Blood Pressure Pulse Oximetry 99 Oxygen Delivery Room Air Fraction of Inspired Oxygen 21 Intake/Output Intake/Output: Intake & Output 03/19/25 03/20/25 03/21/25 03/22/25 22:59 23:59 23:59 23:59 Intake Total 1999 0 Balance 1999 0 Meds/Results Medications: Active Medications Generic Name Dose Route Start Last Admin Trade Name Freq PRN Reason Stop Dose Admin Acetaminophen 650 mg 03/21/25 23:00 Acetaminophen 325 Mg Tablet PO Q4H PRN Mild Pain (1-3) or Fever Hydrocodone Bitart/Acetaminophen 1 tab 03/21/25 23:00 Hydrocodone/Acetaminophen (*Crx) 5-325 Mg Tablet PO Q4H PRN Moderate Pain (4-6) Bisacodyl 5 mg 03/21/25 23:00 Bisacodyl 5 Mg Tablet Ec PO DAILY PRN Constipation Calcium Carbonate 200 mg 03/21/25 23:00 Calcium Carbonate (Tums) 500 Mg (200 Mg Elemental) PO Q6H PRN Indigestion Hydromorphone HCl 1 mg 03/22/25 09:46 Hydromorphone Hcl Inj (*Crx) 1 Mg/Ml Syr IV PUSH Q3H PRN Pain Rated 7-10 Lactated Ringer's 1,000 mls @ 100 mls/hr 03/22/25 08:00 Lr - Lactated Ringers Iv IV CONT .Q10H RONY Ondansetron HCl 4 mg 03/21/25 23:00 Ondansetron Inj 4 Mg/2 Ml Vial IV PUSH Q6H PRN Nausea And Vomiting Labs Labs: Laboratory Results - last 24 hr 03/22/25 06:04 WBC 7.9 RBC 4.27 Hgb 13.2 Hct 39.2 MCV 91.8 MCH 30.9 MCHC 33.7 RDW 12.8 Plt Count 204 MPV 9.2 Immature Gran % (Auto) 0.1 Neut % (Auto) 46.1 Lymph % (Auto) 39.1 [place] % (Auto) 8.8 H Eos % (Auto) 5.6 H Baso % (Auto) 0.3 Lymph # (Auto) 3.10 [place] # (Auto) 0.7 H Eos # (Auto) 0.4 H Baso # (Auto) 0.0 Abs Immat Gran (auto) 0.01 Absolute Neuts (auto) 3.7 Absolute Nucleated RBC 0.000 Nucleated RBC % 0.0 Sodium 136 L Potassium 3.9 Chloride 107 Carbon Dioxide 24 Anion Gap 5 BUN 17 Creatinine 0.86 Estim Creat Clear Calc 73 Estimated GFR > 60 Glucose 82 Calcium 8.3 L Total Bilirubin 0.4 AST 102 H ALT 135 H Alkaline Phosphatase 47 Total Protein 6.0 L Albumin 3.5 Triglycerides 51 Cholesterol 101 LDL Cholesterol Direct 43 HDL Direct 45 Lipase 473 H Quality VTE Prophylaxis VTE prophylaxis: mechanical ordered -Patient's previous records reviewed on admission -ER notes reviewed in detail on admission -discussed all findings and current treatment plan with patient/Family/POA -Consultations reviewed for recommendations -Patient's disposition for safe discharge discussed with senior case manager -radiology imaging, EKG and test results I have personally reviewed and interpreted unless otherwise specified Dictation performed by [employer] direct speech recognition software, therefore excellence coach variants and typographical errors may occur. Hospitalist MIPS Advance Care Plan I have confirmed that the patient's Advanced Care Plan is present, code status is documented, or surrogate decision maker is listed in patient medical record.: Yes Medication Reconciliation I have utilized all available resources to obtain, update and review the patients current medications (includes all prescriptions, OTC, herbals, cannabis, and nutritional supplements).: Yes The patient is not eligible for med reconciliation; the patient is in a emergent medical situation where delaying treatment would jeopardize the patients health.: No
--- NOTE | 2025-03-22 16:49 | WPDGICN ---
Assessment and Plan Assessment and plan (1) Pancreatitis: Qualifiers: Acute pancreatitis complication: unspecified Chronicity: acute Pancreatitis type: drug induced Qualified Code(s): K85.30 - Drug induced acute pancreatitis without necrosis or infection Code(s): K85.90 - Acute pancreatitis without necrosis or infection, unspecified Status: Acute Assessment and Plan: Patient with mild acute pancreatitis, biliary origin, with no evidence of choledocholithiasis clinically or by laboratory parameters, and with improving transaminases. Regarding the pancreatitis management per se, she is responding to adequate lactated Ringer's according to her body weight. An MRCP was ordered, however given her clinical course and laboratory values after admission, laparoscopic cholecystectomy with intraoperative cholangiogram is also a reasonable option. Patient already evaluated by surgery and will make decision in the following hours. (2) Cholelithiasis: Code(s): K80.20 - Calculus of gallbladder without cholecystitis without obstruction Status: Acute GI Consult Note Consult date/time: 03/22/25 16:49 Reason for consult: Acute pancreatitis HPI: Winsome Mcdonnell is a 39 year old female with no significant past medical history. Approximately 10 years ago, patient had a severe episode of abdominal pain, attributable to ?gallbladder disease? and was advised to have a cholecystectomy, however she did not follow the advise and remained asymptomatic for all these years until yesterday, when she experienced a severe epigastric pain attack, radiating to the right upper quadrant and to the back. At arrival to the emergency room she had a following labs: Hematocrit 44.1, WBC 8.3, sodium 138, BUN 23, creatinine 0.86, bilirubin 0.7, AST 220, ALT 162, alk-phos 63, lipase 1651. After adequate hydration with lactated Ringer's, her hematocrit this morning was 39.2, BUN 17 AST 102, ALT 135. She is currently asymptomatic. Review of Systems Review of Systems: All systems reviewed & are unremarkable except as noted in HPI and below PMFSH Past Medical History Medical History Anxiety Surgical History Surgical History History of section History of tonsillectomy Family History Family History (Updated 03/22/25 @ 00:11 by Raffi Kauffman RN) Other Cerebral infarct Myocardial infarct Other Myocardial infarct Other CABG (coronary artery bypass graft) planned Father Multiple myeloma Social History Social History Smoking status: Never smoker Alcohol intake: never Alcohol use details: socially Substance use: never Lack of Transportation: No Lack of Food: Never True Current Housing: I Have Housing Concerned About Future Housing: No Difficulty Paying Gas/Electric Bills: No Difficulty Paying for Meds: No Currently Unemployed: No Education: Bachelor's Degree Difficulty w/ Childcare or Family Care: No Living arrangements: with family Spiritual care concerns: No Meds Home Medications and Allergies Home Medications ?Medication ?Instructions ?Recorded ?Confirmed ?Type cetirizine 10 mg tablet (24Hour 10 mg PO DAILY 03/22/25 03/22/25 History Allergy) docusate sodium 50 mg capsule 50 mg PO DAILY 03/22/25 03/22/25 History tirzepatide (weight loss) 2.5 2.5 mg subcut WEEKLY 03/22/25 03/22/25 History mg/0.5 mL subcutaneous pen injector (Zepbound) vitamin B complex 1 cap PO DAILY 03/22/25 03/22/25 History Allergies Allergy/AdvReac Type Severity Reaction Status Date / Time Sulfa (Sulfonamide Allergy Intermediate Hives Verified 03/22/25 00:17 Antibiotics) Vital Signs Vital Signs - 24 hr 03/21/25 21:56 03/21/25 23:32 03/22/25 00:04 Temperature 97.5 F L 97.7 F 97.4 F L Pulse Rate 73 67 80 Respiratory Rate 15 16 18 Blood Pressure 126/76 108/74 123/75 Pulse Oximetry 99 100 100 Oxygen Delivery Room Air Room Air Fraction of Inspired Oxygen 03/22/25 00:20 03/22/25 05:18 03/22/25 08:00 Temperature 97.5 F L Pulse Rate 80 76 61 Respiratory Rate 18 16 16 Blood Pressure 112/68 Pulse Oximetry 100 99 99 Oxygen Delivery Room Air Room Air Fraction of Inspired Oxygen 21 03/22/25 08:21 Temperature Pulse Rate 61 Respiratory Rate Blood Pressure Pulse Oximetry 99 Oxygen Delivery Room Air Fraction of Inspired Oxygen 21 Exam Const: General: cooperative and healthy appearing Resp: Effort & Inspection: normal respiratory effort and able to speak in complete sentences Auscultation: clear to auscultation bilaterally Cardio: Rate: regular rate Rhythm: regular rhythm GI: Inspection: normal to inspection GI Palp: No No hepatosplenomegaly present Auscultation: normal bowel sounds Rectal Exam: deferred Skin: General skin exam: normal color Psych: Appearance: grossly normal Mental Status: mental status grossly normal Results Labs 03/22/25 06:04 03/22/25 06:04 Labs: Short CBC 03/22/25 Range/Units 06:04 WBC 7.9 (4.5-10.0) K/mm3 Hgb 13.2 (12.0-15.0) g/dL Hct 39.2 (37.0-47.0) % Plt Count 204 (150-375) k/mm3 [facility] 03/22/25 06:04 Sodium 136 L Potassium 3.9 Chloride 107 Carbon Dioxide 24 BUN 17 Creatinine 0.86 Glucose 82 Calcium 8.3 L Liver Function 03/22/25 Range/Units 06:04 Total Bilirubin 0.4 (0.2-1.3) mg/dL AST 102 H (14-36) U/L ALT 135 H (6-35) U/L Alkaline Phosphatase 47 (38-126) U/L Albumin 3.5 (3.5-5.1) g/dL
[2025-03-22] MEDS: KETOROLAC 30 MG/ML VIAL (*BKC) IV PUSH (17:07)
[2025-03-22] MEDS: ONDANSETRON INJ 4 MG/2 ML VIAL IV PUSH (17:08)
[2025-03-22] MEDS: ACETAMINOPHEN 325 MG TABLET 650 MG PO (20:55)
[2025-03-23] MEDS: LACTATED RINGERS 1,000 ML 100 ML IV CONT (01:47)
[2025-03-23 06:00] VITALS: BP 98/69; PULSE 66; RESP 14; TEMP 36.4; O2SAT 99
--- NOTE | 2025-03-23 07:59 | WPDGIPROGNO ---
Progress Note: A&P Assessment and Plan (1) Cholelithiasis: Code(s): K80.20 - Calculus of gallbladder without cholecystitis without obstruction Status: Acute Assessment and Plan: Patient with mild, self-limited acute pancreatitis of biliary origin. Already seen by surgery, will plan on outpatient laparoscopic cholecystectomy in approximately 2 weeks. She is aware of the risk of having a recurrent attack of biliary colic, choledocholithiasis or even pancreatitis. She can be discharged after the MRCP today. (2) Pancreatitis: Qualifiers: Acute pancreatitis complication: unspecified Chronicity: acute Pancreatitis type: drug induced Qualified Code(s): K85.30 - Drug induced acute pancreatitis without necrosis or infection Code(s): K85.90 - Acute pancreatitis without necrosis or infection, unspecified Status: Acute Subjective Date/time seen: 03/23/25 07:59 Interval history: The patient is completely asymptomatic today. Objective Data Vital Signs Vital Signs: Vital Signs - 24 hr 03/22/25 08:00 03/22/25 08:21 03/22/25 14:00 Temperature 97.3 F L Pulse Rate 61 61 71 Respiratory Rate 16 18 Blood Pressure 101/56 L Pulse Oximetry 99 99 100 Oxygen Delivery Room Air Room Air Fraction of Inspired Oxygen 21 21 03/22/25 20:00 03/22/25 21:36 03/22/25 22:55 Temperature 98.1 F Pulse Rate 71 Respiratory Rate 14 Blood Pressure 102/64 Pulse Oximetry 94 94 Oxygen Delivery Room Air Room Air Fraction of Inspired Oxygen 03/23/25 06:00 Temperature 97.5 F L Pulse Rate 66 Respiratory Rate 14 Blood Pressure 98/69 L Pulse Oximetry 99 Oxygen Delivery Fraction of Inspired Oxygen Intake/Output Intake/Output: Intake & Output 03/20/25 03/21/25 03/22/25 03/23/25 23:59 23:59 23:59 23:59 Intake Total 1999 1025 918.3 Balance 1999 1025 918.3 Meds/Results Medications: Active Medications Generic Name Dose Route Start Last Admin Trade Name Freq PRN Reason Stop Dose Admin Acetaminophen 650 mg 03/21/25 23:00 03/22/25 20:55 Acetaminophen 325 Mg Tablet PO 650 mg Q4H PRN Administration Mild Pain (1-3) or Fever Hydrocodone Bitart/Acetaminophen 1 tab 03/21/25 23:00 Hydrocodone/Acetaminophen (*Crx) 5-325 Mg Tablet PO Q4H PRN Moderate Pain (4-6) Bisacodyl 5 mg 03/21/25 23:00 Bisacodyl 5 Mg Tablet Ec PO DAILY PRN Constipation Calcium Carbonate 200 mg 03/21/25 23:00 Calcium Carbonate (Tums) 500 Mg (200 Mg Elemental) PO Q6H PRN Indigestion Hydromorphone HCl 1 mg 03/22/25 09:46 Hydromorphone Hcl Inj (*Crx) 1 Mg/Ml Syr IV PUSH Q3H PRN Pain Rated 7-10 Lactated Ringer's 1,000 mls @ 100 mls/hr 03/22/25 08:00 03/23/25 01:47 Lr - Lactated Ringers Iv IV CONT 100 mls/hr .Q10H RONY Administration Ondansetron HCl 4 mg 03/21/25 23:00 03/22/25 17:08 Ondansetron Inj 4 Mg/2 Ml Vial IV PUSH 4 mg Q6H PRN Administration Nausea And Vomiting
[2025-03-23] MEDS: KETOROLAC 30 MG/ML VIAL (*BKC) IV PUSH (09:31)
--- OUTSIDE RECORDS SUMMARY | 2025-03-23 12:50 | XMS_ITS | Encounter Summary ---
Author Organization [facility] Healthcare Address [address] [place] [address] Care Team Providers Care Surgical Supplies Sterilizer Name Role Phone Savanah Davis NP Primary Care Provider [phone] Encounter Details Date Type Department Care Team ([facility] st Contact Info) Description 03/21/2025 Results Follow-Up [address] [id number] Evelyne Farrell, DO [address] [place] [address] Pap and HPV, reflex to HPV Genotypes, SureSwab Advanced Vaginitis, TMA Social History Tobacco Use Types Packs/Day Years Used Date Smoking Tobacco: Never Smokeless Tobacco: Never PHQ-2 Answer Date Recorded PHQ-2 Total Score 0 03/15/2025 Comments Unknown Sex and Gender Information Value Date Recorded Sex Assigned at Not on file 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
--- OUTSIDE RECORDS SUMMARY | 2025-03-23 12:50 | XMS_ITS | Clinical Summary ---
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 There is no laboratory evidence of HCV infection. In most cases, no further action is required. However, if recent HCV exposure is suspected, a test for HCV RNA (test code 53177) is suggested. For additional information please refer to http://education.Timehop/faq/YOK53x7 (This link is being provided for informational/ educational purposes only.) THIS TEST WAS PERFORMED AT: [facility] [address] [facility] [place] [address] BRYANT CULVER DO,MPH 02/26/2021 3:59 PM CDT 02/26/2021 3:59 PM CDT Meredith Lerner MD LABORATORY Final Result [facility] MG [address] [place] [address] from Last 3 Months or Most Recently Relevant to Health [facility] Advance Directives Documents on File Type Date Recorded Patient Communication Electronic Technician Expl anation Advance Directives and Living Will 08/09/2015 12:00 AM ADVANCED DIRECTIVES Care Teams Foxing Cutting Machine Operator Relationship Specialty Start Date End Date Savanah Davis FNP [address] [place] [address] PCP - General Nurse Practitioner Family 12/16/23
--- OUTSIDE RECORDS SUMMARY | 2025-03-23 12:50 | XMS_ITS | Clinical Summary ---
Author Organization [facility] Address [address] [place] [address] Care Team Providers Care Fur Mixer Operator Name Role Phone Savanah Davis NP Primary Care Provider [phone] Allergies Active Allergy Reactions Criticality Noted Date [...] Department Care Team Description 03/21/2025 Results Follow-Up [facility] [address] [place] [phone] Evelyne Farrell DO Pap and HPV, reflex to HPV Genotypes, SureSwab Advanced Vaginitis, TMA 03/15/2025 10:00 AM CDT Office Visit [facility] at [address] [place] [address] Evelyne Farrell DO Screen for [...] on file 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 Bx [facility] Comment:NONE GIVEN SOURCE: [facility] Comment:Cervix, Endocervix Pap, specimen adequacy [facility] Comment: Satisfactory for evaluation. Endocervical/transformation zone component present. HPV interp [facility] Comment: Cytology Results: Negative for intraepithelial lesion or malignancy. Infection: [facility] Comment: Trichomonas vaginalis identified. Shift in vaginal norberto suggestive of bacterial vaginosis. COMMENTS [facility] Comment: This Pap test has been evaluated with the ThinPrep(R) Imaging System. Tobacco Blender [facility] Comment: FCB, CT(ASCP) CT screening location: [facility], [address] [place] [address] [address], [place] [address] Ice House Supervisor: JOSÉ HOUGH MD, CLIA: [id number] Comment [facility] Comment: EXPLANATORY NOTE: The Pap is a [...] High Risk E6/E7 Not Detected NOT DETECTED [facility] Comment: Not Detected High Risk HPV [...] CYTOLOGY ORDERABLES Final Result Performing Organization Address City/[facility]/ZIP Co de Phone Number [facility] [place] [address] [address] [facility] [place] [address] [place] [address] * (ABNORMAL) Sureab Advanced Vaginitis, TMA (03/15/2025 3:27 PM CDT) SureSwab(R) ADV Bacterial vaginosis (BV), TMA POSITIVE(A) NEGATIVE [facility] Vilma species NOT DETECTED NOT DETECTED [facility] Vilma glabrata NOT DETECTED NOT DETECTED [facility] Comment: Vilma species C. albicans, C. tropicalis, C. parapsilosis, and/or C. dubliniensis can be detected, but not differentiated, in the Vilma spp. result. Trichomonas vaginalis (TV), TMA DETECTED(A) NOT DETECTED [facility] 03/15/2025 3:27 PM CDT 03/16/2025 3:02 PM CDT us Evelyne Farrell DO LAB MICROBIOLOGY - GENE RAL ORDERABLES Final Result Performing Organization Address City/[facility]/ZIP Co de Phone Number [facility] [address] [place] [address] from Last 3 Months Insurance [facility] Care Teams Fur Mixer Operator Relationship Specialty Start Date End Date Savanah Davis NP [address] [place] [address] [place] [address] PCP - General Family Practice 10/28/24
--- OUTSIDE RECORDS SUMMARY | 2025-03-23 12:50 | XMS_ITS | Clinical Summary ---
Author Organization [facility] Address [address] [place] [address] Care Team Providers Care Car Trimmer Name Role Phone Unavailable Primary Care Provider Unavailabl e Source Comments [facility],non-owned Affiliates and Associated Physician Practices is amultiple site organization consisting of ambulatory clinics and hospital sitesin [place], [place], [place] and [place]. This disclosure is being madepursuant to the Care Everywhere program and may not contain all information available regarding this patient. 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
--- NOTE | 2025-03-23 13:17 | P.PNGS_ITS ---
Progress Note: A&P Assessment and Plan (1) Cholelithiasis: Code(s): K80.20 - Calculus of gallbladder without cholecystitis without obstruction Status: Acute Assessment and Plan: * Patient doing well. Denies any abdominal pain or other symptoms. * Patient scheduled for outpatient laparoscopic cholecystectomy on April 07, 2025. She will see Dr. Farris in the office prior to this and obtain labs. * MRCP obtained this morning and demonstrated no choledocholithiasis. Incidentally found were enhancing lesions in the right lobe of the liver may represent benign adenomas. Should be considered LI-RADS 3 category lesions. Follow-up imaging with liver protocol CT or MRI recommended in 6 months. Instructed patient to follow up with her PCP about this. (2) Pancreatitis: Qualifiers: Acute pancreatitis complication: unspecified Chronicity: acute Pancreatitis type: drug induced Qualified Code(s): K85.30 - Drug induced acute pancreatitis without necrosis or infection Code(s): K85.90 - Acute pancreatitis without necrosis or infection, unspecified Status: Acute Assessment and Plan: Seems to be resolved. Patient denies any abdominal pain. Likely due to a gallstone that passed. Plan Discussed patient's case and plan of care with Dr. Farris. Subjective Subjective Date/Time Seen: 03/23/25 13:17 Patient reports: no new complaints and feels better Interval history: Patient doing well today. No new complaints. MRCP showed no CBD stones. Exam Const: General: comfortable and no acute distress GI: Inspection: non-distended GI Palp: Yes Soft to palpation and No Tenderness to palpation present (GI) Extrem: General: normal to inspection Psych: Mental Status: mental status grossly normal Objective Data Vital Signs Vital Signs: Vital Signs - 24 hr 03/22/25 14:00 03/22/25 20:00 03/22/25 21:36 Temperature 97.3 F L 98.1 F Pulse Rate 71 71 Respiratory Rate 18 14 Blood Pressure 101/56 L 102/64 Pulse Oximetry 100 94 Oxygen Delivery Room Air 03/22/25 22:55 03/23/25 06:00 03/23/25 08:00 Temperature 97.5 F L Pulse Rate 66 Respiratory Rate 14 Blood Pressure 98/69 L Pulse Oximetry 94 99 Oxygen Delivery Room Air Room Air Intake/Output Intake/Output: Intake & Output 03/20/25 03/21/25 03/22/25 03/23/25 23:59 23:59 23:59 23:59 Intake Total 1999 1025 918.3 Balance 2000 1025 918.3 Meds/Results Radiology Results: ITS Impressions MRCP 03/23/25 09:32 IMPRESSION: 1. Cholelithiasis with extrahepatic biliary duct upper limits normal in size but no choledocholithiasis; intrahepatic ducts are normal in size. 2. Enhancing lesions in the right lobe of the liver may represent benign adenomas. These should be considered LI-RADS 3 category lesions. Follow-up imaging with liver protocol CT or MRI recommended in 6 months or sooner if clinically appropriate.
--- NOTE | 2025-03-23 13:29 | P.DS_ITS ---
DS: Admitting Diagnosis Discharge Date 03/23/25 Admitting Diagnosis Choledocholithiasis/acute pancreatitis DS: Discharge Diagnosis Discharge Diagnosis (1) Choledocholithiasis: Code(s): K80.50 - Calculus of bile duct without cholangitis or cholecystitis without obstruction Status: Acute (2) Pancreatitis: Qualifiers: Acute pancreatitis complication: unspecified Chronicity: acute Pancreatitis type: drug induced Qualified Code(s): K85.30 - Drug induced acute pancreatitis without necrosis or infection Code(s): K85.90 - Acute pancreatitis without necrosis or infection, unspecified Status: Acute (3) Transaminitis: Code(s): R74.01 - Elevation of levels of liver transaminase levels Status: Acute DS: Summary Hospital Course Reason for hospitalization: Choledocholithiasis/acute pancreatitis Hospital Course: Admission: Patient was a 39 y/o F with PMH of anxiety and who presented to the ED with complaints of sudden onset abdominal pain. The patient presented here on 03/21 for further evaluation of abdominal pain. She reports acute onset of abdominal pain while she was at the gym. She describes the abdominal pain as right upper quadrant, sharp, nonradiating, initially constant now resolved, and no improvement with bowel movement. Pain was severe for approximately 2 hours then suddenly improved without intervention. She reports accompanying nausea without vomiting and diaphoresis. Pain had her doubled over. She denies fever, chills, body aches, chest pain. No previous history of gallstones or cholecystectomy. Initially patient was discharged home to follow-up with General surgery outpatient however was called back to the emergency department after official reading imaging laboratories showed some concern for possible bile duct obstruction In the ED: No leukocytosis, no anemia, no significant electrolyte derangements, creatinine 0.8 and GFR >60, AST 220, ALT 162, total bilirubin within normal limits, lipase 1651, and UA unremarkable. Ultrasound of the right upper quadrant so cholelithiasis, mild gallbladder distension, without GB wall thickening or pericholecystic fluid, negative Chase sign. Hospital course: Patient was admitted to the medical unit with consult to GI and General surgery for further evaluation. Patient was advised to hold her Tirizetipitde during this acute phase that can cause biliary colic. GI recommended MRCP which showed cholelithiasis with extrahepatic biliary duct upper limits size no choledocholithiasis. Per discussion with patient and surgery they recommended proceeding with a laparoscopic cholecystectomy with intraoperative cholangiogram today and foregoing the MRCP. However the patient wishes to have her gallbladder removed electively on an outpatient basis. Patient understood risk of recurrent pancreatitis prior to surgery and has opted for outpatient laparoscopic cholecystectomy. Patient was discharged on low-fat, bland diet. Patient can follow-up with General Surgery Dr. Farris's office in 2 weeks and tentative plan is to proceed with laparoscopic cholecystectomy on April 07, 2025. Patient seen assessed at discharge no further abdominal pain no nausea no vomiting tolerating oral intake. Patient was discharged home instructed to continue to hold her tirzepatide until after surgery insert return for medical attention if symptoms return or worsen. Status at Discharge Functional status at discharge: independent ambulation Overall status at discharge: patient is back to baseline Time Spent with Patient Time attestation: Total time spent providing and/or coordinating discharge services: Time spent: Greater than 30 minutes Exam Const: General: comfortable and no acute distress Other: , female, nontoxic appearance HENMT: Face/Nose/Sinus: Normal nares present Mouth: Yes moist mucous membranes Eyes: General: appearance normal, both eyes and all related structures Sclera: sclerae normal Pupils: Equal, round and reactive pupils present EOM: EOMs intact bilaterally Resp: Effort & Inspection: normal respiratory effort Auscultation: clear to auscultation bilaterally Cardio: Rate: regular rate Rhythm: regular rhythm Other: S1-S2 present without murmur, rub, ectopy GI: Other: Abdomen soft, nondistended. Mild tenderness in the right upper quadrant. Normoactive bowel sounds in all quadrants. Skin: General skin exam: normal color and no rashes or lesions noted Wounds: no wounds Neuro: Cranial nerves: Yes Equal, round and reactive pupils present Speech: normal speech Motor exam (neuro): 5/5 motor strength present throughout Sensory Exam: normal sensation Other: A&O x4 Extrem: General: normal to inspection Psych: Mental Status: mental status grossly normal Affect: normal affect Other: good insight and judgment, pleasant DS: Data Imaging Radiologist's impression: EXAM/PROCEDURE: MR MRCP wo/w con/w 3D wo ind HISTORY: r/o choledocholithiasis COMPARISON: Ultrasound from March 21 TECHNIQUE: Pre and postcontrast multiplanar abdominal MRI performed with MRCP technique. FINDINGS: Small amount of tiny gallstones and layering sludge noted in the dependent gallbladder with no gross wall thickening or pericholecystic fluid. The common bile duct approaching the pancreatic uncinate region is upper limits normal measuring up to 6.3 mm, although this area is somewhat obscured by motion artifact. No choledocholithiasis clearly identified. Intrahepatic ducts are normal in appearance and size. Pancreas appears normal. 2 enhancing lesions are seen in the posterior segment of the right lobe of the liver with the largest in the dome region measuring 1.5 cm as seen on image 275 series 14. A smaller lesion also in the right lobe measuring 7.9 mm seen on image 295 series 14. The remainder of the liver spleen pancreas adrenal glands and kidneys appear normal. The remainder the exam is unremarkable. IMPRESSION: 1. Cholelithiasis with extrahepatic biliary duct upper limits normal in size but no choledocholithiasis; intrahepatic ducts are normal in size. 2. Enhancing lesions in the right lobe of the liver may represent benign adenomas. These should be considered LI-RADS 3 category lesions. Follow-up imaging with liver protocol CT or MRI recommended in 6 months or sooner if clinically appropriate. Discharge Plan Discharge Attending physician on discharge: Ole Carranza Oca Consulting providers: Janiya Almanza; Stevan Farris Discharging Clinician: Janiya Almanza Anticipated Discharge Date/Time: 03/23/25 09:32 Patient Disposition: Home Activity: may shower and as tolerated Diet: low fat Discharge Instructions: 1). Cholelithiasis * recommend low-fat diet/ bland diet * continue to hold her Zepbound until after surgery * Plan for surgery outpatient tentatively on April 07, 2025. Call Dr. Farris's office to schedule a preop visit for earlier in that week. Information provided to schedule. * Obtain a set of labs prior to being seen in general surgery office. Information provided. * if symptoms return and worsen please seek medical attention * Follow up with primary care provider regarding follow up CT/MRI of liver in 6 months How can you care for yourself at home? ? Keep track of any new symptoms or changes in your symptoms. ? Rest until you feel better. ? Be safe with medicines. Take your medicines exactly as prescribed. Call your doctor if you think you are having a problem with your medicine. ? Do not drive after taking a prescription pain medicine. ? Ensure to follow-up with primary care physician as indicated and provide updated medication list provided to you at discharge. When should you call for help? Call 911 anytime you think you may need emergency care. For example, call if: ? You passed out (lost consciousness). Call your doctor now or seek immediate medical care if: ? You have new symptoms like fever, difficulty breathing, Chest pain, vomiting, or rash. ? You have new or different pain. ? You are confused and are having trouble thinking clearly. ? Your symptoms are getting worse. Watch closely for changes in your health, and be sure to contact your doctor if: ? You do not get better as expected. Patient Instructions: Antibiotic Form, Pancreatitis (DC), Laparoscopic Cholecystectomy (DC) Patient Language: Georgian Stand Alone Forms: General Discharge Information Follow-up/Referrals: Stevan Farris MD [Physician, General Surgery] - 2 Weeks Referral Note: Patient scheduled for surgery on 04/07. Dr. Farris would like to see her in clinic earlier that week. Discharge Medications: Continued cetirizine [24Hour Allergy] 10 mg tablet 10 mg PO DAILY vitamin B complex Capsule 1 cap PO DAILY docusate sodium 50 mg capsule 50 mg PO DAILY Held Zepbound 2.5 mg/0.5 mL pen injector 2.5 mg SUBCUT WEEKLY Hold Instructions: Resume on 04/08/25. Hold until surgery Other Ambulatory Orders: Complete Blood Count no Diff (Routine) Timeframe: 20250323 Location: Determined by Patient Ordered By: Lety Franklin Comprehensive Metabolic Panel (Routine) Timeframe: 20250323 Location: Determined by Patient Ordered By: Lety Franklin Date of admission: 03/22/25 10:55 Primary Care Provider: PHYSICIAN NOT ON STAFF,NONSTAFF Admitting Provider: Ole Carranza Oca Attending physician on admission: Ole Carranza Oca Condition: Stable Quality VTE Prophylaxis VTE prophylaxis: mechanical ordered -Patient's previous records reviewed on admission -ER notes reviewed in detail on admission -discussed all findings and current treatment plan with patient/Family/POA -Consultations reviewed for recommendations -Patient's disposition for safe discharge discussed with dependency case manager -radiology imaging, EKG and test results I have personally reviewed and interpreted unless otherwise specified Dictation performed by [email or web address] direct speech recognition software, therefore domestic helper variants and typographical errors may occur. Hospitalist MIPS Heart Failure (Exclusion) Patient has history of Heart Transplant or Left Ventricular Assistive Device?: No IF YES, STOP HERE Heart Failure (Qualifier) Patient has current or prior documentation of LVEF less than or equal to 40%, or mod/servere depressed LVSF?: No IF NO, STOP HERE
== END 2025-03-23 11:23 | disposition home or self-care (01) ==
LOC: ANHED 22:28 → ANH3MEDSUR 03-22 08:47
PROVIDERS: Student in an Organized Health Care Education/Training Program; Admitting Provider Student in an Organized Health Care Education/Training Program; Emergency Provider Student in an Organized Health Care Education/Training Program; Visit Provider Nurse Practitioner Family
DX: K80.20 Calculus of gallbladder without cholecystitis without obstruction (principal); K85.30 Drug induced acute pancreatitis without necrosis or infection
CPT/HCPCS: 36415; 74183; 76376; 80053; 80061; 83690; 85025; 99285; A9270; A9577; G0378; J1885; J2405; J7120

== ENCOUNTER 2025-03-27 20:32 | Emergency (ER) | payer OTHER, SELFPAY ==
[2025-03-27 20:53] VITALS: BP 127/82; PULSE 81; RESP 16; TEMP 36.6; O2SAT 100
--- NOTE | 2025-03-27 22:06 | PC.NURSE ---
pt states pain has resolved. pt states she will follow up with her pcp.
--- OUTSIDE RECORDS SUMMARY | 2025-03-27 22:10 | XMS_ITS | Clinical Summary ---
Author Organization 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 There is no laboratory evidence of HCV infection. In most cases, no further action is required. However, if recent HCV exposure is suspected, a test for HCV RNA (test code 98332) is suggested. For additional information please refer to http://education.nanoMR/faq/LUS35u3 (This link is being provided for informational/ educational purposes only.) THIS TEST WAS PERFORMED AT: [facility] [address] [place] [address] BRYANT CULVER DO,MPH 02/26/2021 3:59 PM CDT 02/26/2021 3:59 PM CDT Meredith Lerner MD LABORATORY Final Result [facility] MG [address] [place] [address] from Last 3 Months or Most Recently Relevant to Health Maintenance [facility] Advance Directives Documents on File Type Date Recorded Patient Real Estate Firm Manager Expl anation Advance Directives and Living Will 08/09/2015 12:00 AM ADVANCED DIRECTIVES Care Teams Contract Administration Specialist Relationship Specialty Start Date End Date Savanah Davis FNP [address] [place] [id number] PCP - General Nurse Practitioner Family 12/16/23
--- OUTSIDE RECORDS SUMMARY | 2025-03-27 22:10 | XMS_ITS | Clinical Summary ---
Author Organization [facility] Address [address] [place] [address] Care Team Providers Care Byproduct Engineer Name Role Phone Unavailable Primary Care Provider Unavailabl e Source Comments [facility],non-owned Affiliates and Associated Physician Practices is amultiple site organization consisting of ambulatory clinics and hospital sitesin [place], [place], [place] and [place]. This disclosure is being madepursuant to the Care Everywhere program and may not contain all information available regarding this patient. 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
--- OUTSIDE RECORDS SUMMARY | 2025-03-27 22:10 | XMS_ITS | Encounter Summary ---
Author Organization [facility] Healthcare Address [address] [place] [address] Care Team Providers Care Rodeo Clown Name Role Phone Savanah Davis NP Primary Care Provider [phone] Encounter Details Date Type Department Care Team ([facility] st Contact Info) Description 03/21/2025 Results Follow-Up [address] [phone] Evelyne Farrell, DO [address] [place] [address] Pap and HPV, reflex to HPV Genotypes, SureSwab Advanced Vaginitis, TMA Social History Tobacco Use Types Packs/Day Years Used Date Smoking Tobacco: Never Smokeless Tobacco: Never PHQ-2 Answer Date Recorded PHQ-2 Total Score 0 03/15/2025 Comments Unknown Sex and Gender Information Value Date Recorded Sex Assigned at Not on file 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
--- OUTSIDE RECORDS SUMMARY | 2025-03-27 22:10 | XMS_ITS | Clinical Summary ---
Author Organization [facility] Address [address] [place] [address] Care Team Providers Care Dental Laboratory Worker Name Role Phone Savanah Davis NP Primary Care Provider [phone] Allergies Active Allergy Reactions Criticality Noted Date Comments Sulfa (Sulfonamide Antibiotics) Rash,Urticaria Medium 10/20/2012 Medications Zepbound 2.5 mg/0.5 mL pen injector Inject 0.5 mL (2.5 mg total) under the skin once a week Active metroNIDAZOLE (FLAGYL) 500 mg tablet Take 1 tablet (500 mg total) by mouth 2 (two) times a day for 7 days 14 tablet 03/21/2025 Active Active Problems No known active problems Encounters Date Type Department Care Team Description 03/21/2025 Results Follow-Up [facility] [address] [place] [phone] Evelyne Farrell, Pap and HPV, reflex to HPV Genotypes, SureSwab Advanced Vaginitis, TMA 03/15/2025 10:00 AM CDT Office Visit [facility] at [address] [place] [address] Evelyne Farrell DO Well woman exam (Primary Dx); Screen for sexually transmitted diseases; Encounter for annual routine gynecological examination; Acute vaginitis from Last 3 Months Surgical History Surgery [...] on file 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 Gender Identity Not on file Sexual [...] of 2 - 13+ 2-dose series) 07/28/2000 HPV Vaccines (1 - 3-dose SCDM series) 07/28/2014 Covid-19 Vaccine (3 - season) 2025 07/20/2020, 06/01/2020 Influenza Vaccine (#1) 2025 03/01/2024, 2022 Cervical Cancer Screening 03/15/2026 03/15/2025 Depression Screening 03/15/2026 03/15/2025 Regular Well Visit/Exam 18-64 03/15/2026 03/15/2025 DTaP/Tdap/Td Vaccine (7 - Td [...] 3:27 PM CDT) CLINICAL INFORMATION: [facility] Comment:WELL WOMAN/CERVICAL CANCER SCREENI LMP [facility] Comment:03/05/25 Previous Pap [facility] Comment:NONE GIVEN Prev. Bx [facility] Comment:NONE GIVEN SOURCE: [facility] Comment:Cervix, Endocervix Pap, specimen adequacy [facility] Comment: Satisfactory for evaluation. Endocervical/transformation zone component present. HPV interp [facility] Comment: Cytology Results: Negative for intraepithelial lesion or malignancy. Infection: [facility] Comment: Trichomonas vaginalis identified. Shift in vaginal norberto suggestive of bacterial vaginosis. COMMENTS [facility] Comment: This Pap test has been evaluated with the ThinPrep(R) Imaging System. Clinical Evaluator [facility] Comment: FCB, CT(ASCP) CT screening location: [facility], [address] [place] [address] [address], [place] [address] Processing Lead: JOSÉ HOUGH MD, CLIA: [id number] Comment [facility] Comment: EXPLANATORY NOTE: The Pap is [...] High Risk E6/E7 Not Detected NOT DETECTED [facility] Comment: Not Detected High Risk HPV types (16,18,31,33,35,39,45,51,52, 56,58,59,66,68) were not detected. Other HPV types which cause anogenital lesions may be present. The significance of the other types of HPV in malignant processes has not been established. Methodology: Real Time PCR Thin prep-Endocervica l 03/15/2025 3:27 PM CDT 03/16/2025 3:02 PM CDT us Evelyne Farrell DO LAB CYTOLOGY ORDERABLES Final Result Performing Organization Address [facility] Co de Phone Number [facility] [place] [address] [address] [address] * (ABNORMAL) [facility], TMA (03/15/2025 3:27 PM CDT) SureSwab(R) ADV Bacterial vaginosis (BV), TMA POSITIVE(A) NEGATIVE [facility] Vilma species NOT DETECTED NOT DETECTED [facility] Vilma glabrata NOT DETECTED NOT DETECTED [facility] Comment: Vilma species C. albicans, C. tropicalis, C. parapsilosis, and/or C. dubliniensis can be detected, but not differentiated, in the Vilma spp. result. Trichomonas vaginalis (TV), TMA DETECTED(A) NOT DETECTED [facility] 03/15/2025 3:27 PM CDT 03/16/2025 3:02 PM CDT us Evelyne Farrell DO LAB MICROBIOLOGY - GENE RAL ORDERABLES Final Result [facility] [address] [place] [address] from Last 3 Months Insurance [facility] Care Teams Dental Laboratory Worker Relationship Specialty Start Date End Date Savanah Davis NP [address] [place] [address] [place] [address] PCP - General Family Practice 10/28/24
== END 2025-03-27 22:47 | disposition left against medical advice (07) ==
PROVIDERS: PCP Surgery
DX: R10.11 Right upper quadrant pain (principal)
CPT/HCPCS: 99199

== ENCOUNTER 2025-03-28 00:53 | Observation (INO) | payer OTHER, SELFPAY ==
[2025-03-28] VITALS (21 sets, daily range): BP systolic 92–129; BP diastolic 49–87; PULSE 71–102; RESP 12–20; TEMP 36.1–37; O2SAT 16–100; BMI 22.1
--- OUTSIDE RECORDS SUMMARY | 2025-03-28 00:55 | XMS_ITS | Clinical Summary ---
Author Organization [facility] Address [address] [place] [address] Care Team Providers Care Hospital Admissions Clerk Name Role Phone Savanah Davis NP Primary Care Provider [phone] Allergies Active Allergy Reactions Criticality Noted Date [...] Department Care Team Description 03/21/2025 Results Follow-Up [facility] [address] [place] [phone] Evelyne Farrell, Pap and HPV, reflex to HPV Genotypes, SureSwab Advanced Vaginitis, TMA 03/15/2025 10:00 AM CDT Office Visit [facility] at [address] [place] [address] Evelyne Farrell DO Well woman [...] on file 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 Bx [facility] Comment:NONE GIVEN SOURCE: [facility] Comment:Cervix, Endocervix Pap, specimen adequacy [facility] Comment: Satisfactory for evaluation. Endocervical/transformation zone component present. HPV interp [facility] Comment: Cytology Results: Negative for intraepithelial lesion or malignancy. Infection: [facility] Comment: Trichomonas vaginalis identified. Shift in vaginal norberto suggestive of bacterial vaginosis. COMMENTS [facility] Comment: This Pap test has been evaluated with the ThinPrep(R) Imaging System. Wall Man [facility] Comment: FCB, CT(ASCP) CT screening location: [facility], [address] [place] [address] [address], [place] [address] Teacher Of Gifted Students: JOSÉ HOUGH MD, CLIA: [id number] Comment [facility] Comment: EXPLANATORY NOTE: The Pap is a [...] High Risk E6/E7 Not Detected NOT DETECTED [facility] [employer] [facility] Comment: Not Detected High Risk HPV [...] CYTOLOGY ORDERABLES Final Result Performing Organization Address [facility] Co de Phone Number [facility] [place] [address] [address] [address] * (ABNORMAL) [facility]ag[facility], TMA (03/15/2025 3:27 PM CDT) SureSwab(R) ADV Bacterial vaginosis (BV), TMA POSITIVE(A) NEGATIVE [facility] Vilma species NOT DETECTED NOT DETECTED [facility] Vilma glabrata NOT DETECTED NOT DETECTED [facility] Comment: Vilma species C. albicans, C. tropicalis, C. parapsilosis, and/or C. dubliniensis can be detected, but not differentiated, in the Vilma spp. result. Trichomonas vaginalis (TV), TMA DETECTED(A) NOT DETECTED [facility] 03/15/2025 3:27 PM CDT 03/16/2025 3:02 PM CDT us Evelyne Farrell DO LAB MICROBIOLOGY - GENE RAL ORDERABLES Final Result [facility] [address] [place] [address] from Last [address] [facility] Care Teams Hospital Admissions Clerk Relationship Specialty Start Date End Date Savanah Davis NP [address] [place] [address] [place] [address] PCP - General Family Practice 10/28/24
--- OUTSIDE RECORDS SUMMARY | 2025-03-28 00:55 | XMS_ITS | Clinical Summary ---
Author Organization [facility] Address [address] [place] [address] Care Team Providers Care Rotor Balancer Name Role Phone Unavailable Primary Care Provider Unavailabl e Source Comments [facility],non-owned Affiliates and Associated Physician Practices is amultiple site organization consisting of ambulatory clinics and hospital sitesin [place], [place], [place] and [place]. This disclosure is being madepursuant to the Care Everywhere program and may not contain all information available regarding this patient. Last updated 18.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
--- OUTSIDE RECORDS SUMMARY | 2025-03-28 00:55 | XMS_ITS | Clinical Summary ---
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 There is no laboratory evidence of HCV infection. In most cases, no further action is required. However, if recent HCV exposure is suspected, a test for HCV RNA (test code 31160) is suggested. For additional information please refer to http://education.Liquor.com/faq/HMR93h1 (This link is being provided for informational/ educational purposes only.) THIS TEST WAS PERFORMED AT: [facility] [address] [address] [place] [address] BRYANT CULVER DO,MPH 02/26/2021 3:59 PM CDT 02/26/2021 3:59 PM CDT Meredith Lerner MD LABORATORY Final Result [facility] [address] [place] [address] from Last 3 Months or Most Recently Relevant to Health Maintenance Insurance [facility] Advance Directives Documents on File Type Date Recorded Patient Plumbing Warehouse Helper Expl anation Advance Directives and Living Will 08/09/2015 12:00 AM ADVANCED DIRECTIVES Care Teams Demurrage Worker Relationship Specialty Start Date End Date Savanah Davis FNP [address] [place] [address] PCP - General Nurse Practitioner Family 12/16/23
--- OUTSIDE RECORDS SUMMARY | 2025-03-28 00:55 | XMS_ITS | Encounter Summary ---
Author Organization [facility] Healthcare Address [address] [place] [address] Care Team Providers Care Painter Plate Name Role Phone Savanah Davis NP Primary Care Provider [phone] Encounter Details Date Type Department Care Team ([facility] st Contact Info) Description 03/21/2025 Results Follow-Up [address] [phone] Evelyne Farrell, DO [address] [place] [address] Pap and HPV, reflex to HPV Genotypes, SureSwab Advanced Vaginitis, TMA Social History Tobacco Use Types Packs/Day Years Used Date Smoking Tobacco: Never Smokeless Tobacco: Never PHQ-2 Answer Date Recorded PHQ-2 Total Score 0 03/15/2025 Comments Unknown Sex and Gender Information Value Date Recorded Sex Assigned at Not on file 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
--- NOTE | 2025-03-28 01:04 | ED.ABDPAIN ---
HPI - Abdominal Pain General Chief Complaint: Abdominal Pain Stated Complaint: ABD PAIN Time Seen by Provider: 03/28/25 00:56 Source: patient Mode of arrival: ambulatory Limitations: no limitations History of Present Illness HPI narrative: This is a 39-year-old female who presents the ED for abdominal pain. Patient states that about an hour ago she had onset of right upper quadrant abdominal pain. She was recently admitted for similar symptoms and found to have biliary colic. There is discussion regarding elective intervention at that time but was ultimately decided to defer into an outpatient setting. Does have nausea but no vomiting. Denies fevers, chills. Related Data Home Medications ?Medication ?Instructions ?Recorded ?Confirmed ?Last Taken ?Type cetirizine 10 mg tablet (24Hour 10 mg PO DAILY 03/22/25 03/28/25 03/28/25 History Allergy) docusate sodium 50 mg capsule 50 mg PO DAILY 03/22/25 03/28/25 Unknown History tirzepatide (weight loss) 2.5 2.5 mg subcut WEEKLY 03/22/25 03/28/25 03/15/25 History mg/0.5 mL subcutaneous pen injector (Zepbound) Held on 03/23/25. Instructions: Resume on 04/08/25. Hold until surgery vitamin B complex 1 cap PO DAILY 03/22/25 03/28/25 03/28/25 History L. crispatus, gasseri, jensenii, 1 cap PO DAILY 03/28/25 03/28/25 03/28/25 History rhamnosus 5 billion cell capsule ([employer] Vaginal Health Probiotic) metronidazole 500 mg tablet 500 mg PO BID 03/28/25 03/28/25 03/28/25 History Allergies Allergy/AdvReac Type Severity Reaction Status Date / Time Sulfa (Sulfonamide Allergy Intermediate Hives Verified 03/28/25 03:22 Antibiotics) Review of Systems Review of Systems: Gen.: Denies fevers or chills Eyes: Denies eye pain or visual change ENT: Denies congestion Respiratory: Denies shortness of breath or cough CV: Denies chest pain or palpitations GI: As per HPI denies burning, urgency, frequency or hematuria Musculoskeletal: Denies back pain or muscle pain Neuro: Denies numbness, tingling, weakness or focal weakness Skin: Denies rash Except as documented, all other systems reviewed and negative PMFSH Past Medical History Medical History Anxiety Surgical History Surgical History History of section History of tonsillectomy Family History Family History Other Cerebral infarct Myocardial infarct Other Myocardial infarct Other CABG (coronary artery bypass graft) planned Father Multiple myeloma Social History Social History Smoking status: Never smoker Alcohol intake: never Alcohol use details: socially Substance use: never Substance use type: does not use Lack of Transportation: No Lack of Food: Never True Current Housing: I Have Housing Concerned About Future Housing: No Difficulty Paying Gas/Electric Bills: No Difficulty Paying for Meds: No Currently Unemployed: No Education: Bachelor's Degree Difficulty w/ Childcare or Family Care: No Living arrangements: with family Spiritual care concerns: No Exam Narrative: APPEARANCE: Mild distress, nontoxic, resting in bed EYES: EOMI HEENT: Normocephalic, atraumatic, OMM RESPIRATORY: No respiratory distress Clear to auscultation bilaterally with no rhonchi wheezing or rales. CARDIOVASCULAR: Regular rate and rhythm without murmurs rubs or gallops. ABDOMINAL: Soft, right upper quadrant tenderness to palpation, nondistended, no rebound or guarding MUSCULOSKELETAl: Moves all extremities. No clubbing, cyanosis or edema. NEURO: Awake and alert. Following commands, speech normal, no focal deficits SKIN:: Warm, dry. No rashes lesions or abrasions PSYCHIATRIC: Normal affect/mood, Course Vital Signs Vital signs: Vital Signs Respiratory Rate 14 03/28/25 01:14 Blood Pressure 129/87 03/28/25 01:14 Pulse Oximetry 100 03/28/25 01:14 Temperature 97.5 F L 03/28/25 03:42 Pulse Rate 79 03/28/25 03:42 Respiratory Rate 20 03/28/25 03:42 Blood Pressure 98/58 L 03/28/25 03:42 Pulse Oximetry 99 03/28/25 03:42 Oxygen Delivery Room Air 03/28/25 03:40 MDM - Abdominal Pain MDM Narrative Medical decision making narrative: 39-year-old female Presenting for right upper quadrant abdominal pain. On initial evaluation patient was in no acute distress afebrile, hemodynamic stable. Differentials include but are not limited to: ACS, cholecystitis, choledocolithiasis, ascending cholangitis, hepatitis, SBO, constipation, cancer Notable exam findings: Tenderness to palpation to the right upper quadrant without rebound or guarding Notable lab findings: CBC without significant abnormalities. Transaminitis with AST weight 224 and ALT 149. UA clear. Patient had same symptoms last week and was scheduled for outpatient cholecystectomy with Dr. Farris. Because of this, additional imaging is not indicated. I did discuss the case with Dr. De La Rosa, general surgery, does agree with this plan, does recommend Zosyn and he will admit the patient. Medical Records Attestation: I reviewed the patient's medical records. Medical records narrative: Patient admitted 03/21 for same symptoms was found have pancreatitis but with cholelithiasis and borderline common bile duct. Patient was scheduled for outpatient cholecystectomy on 04/07/2025. Lab Data Attestation: I reviewed the patient's lab results. 03/28/25 01:21 03/28/25 01:21 Labs: Lab Results 03/28/25 03/28/25 Range/Units 01:21 01:30 WBC 8.0 (4.5-10.0) K/mm3 RBC 4.44 (4.2-5.4) M/mm3 Hgb 13.7 (12.0-15.0) g/dL Hct 40.8 (37.0-47.0) % MCV 91.9 (80-100) fl MCH 30.9 (26-34) pg MCHC 33.6 (32-36) g/dl RDW 13.0 (11.5-14.5) % Plt Count 220 (150-375) k/mm3 MPV 9.4 (7.4-10.4) fl Immature Gran % (Auto) 0.2 (0-0.5) % Neut % (Auto) 45.0 L (45.5-73.1) % Lymph % (Auto) 39.4 (18.3-44.2) % [place] % (Auto) 9.2 H (2.6-8.5) % Eos % (Auto) 5.7 H (0-4.4) % Baso % (Auto) 0.5 (0.2-1.2) % Lymph # (Auto) 3.17 (0.9-3.2) K/mm3 [place] # (Auto) 0.7 H (0.1-0.6) K/mm3 Eos # (Auto) 0.5 H (0-0.3) K/mm3 Baso # (Auto) 0.0 (0.0-0.1) K/mm3 Abs Immat Gran (auto) 0.02 (0.00-0.031) K/mm3 Absolute Neuts (auto) 3.6 (1.3-6.7) K/mm3 Absolute Nucleated RBC 0.000 (0.0-0.012) K/mm3 Nucleated RBC % 0.0 (0.0-0.2) % Sodium 136 L (137-145) mmol/L Potassium 3.5 (3.4-5.0) mmol/L Chloride 103 (98-107) mmol/L Carbon Dioxide 28 (22-30) mmol/L Anion Gap 5 (4-12) mmol/L BUN 15 (7-17) mg/dL Creatinine 0.90 (0.7-1.0) mg/dL Estim Creat Clear Calc 70 ml/min Estimated GFR > 60 (59 - ) Glucose 84 (65-110) mg/dL Lactic Acid < 0.5 L (0.7-2.0) mmol/L Calcium 8.9 (8.4-10.2) mg/dL Total Bilirubin 0.5 (0.2-1.3) mg/dL AST 224 H (14-36) U/L ALT 149 H (6-35) U/L Alkaline Phosphatase 69 (38-126) U/L Total Protein 6.9 (6.3-8.2) g/dL Albumin 4.1 (3.5-5.1) g/dL Discharge Plan Discharge Clinical Impression: Biliary colic, Transaminitis Patient Disposition: Still a Patient Condition: Stable
--- OUTSIDE RECORDS SUMMARY | 2025-03-28 01:04 | XMS_ITS | Data Portability ---
Author Organization [facility] for [facility], [id number] Address [address] [place] [address] Assessment No assessment recorded. Plan of Treatment [...] Address Organization Details Recorded Time Anxiety state 378341033 Active Anxiety Disorder , Curtis patton, Problem Code: 300.00; Problem Code Type: ICD-9; Not Available [facility] 12:38:24 Anxiety 85320543 [facility] 15:15:28 Problem Notes None recorded. Procedures Surgical History Date Name Laterality Status Provider Name and Address Organization Details Recorded Time 04/18/20 21 Date of Last Pap Smear completed [facility] 07/22/2024 15:15:46 03/04/20 21 removal of Mirena coil completed Not Available [facility] 09/15/2024 14:15:21 section [facility] 07/22/2024 15:18:12 Colposcopy completed [facility] 07/22/2024 15:18:24 Endometrial Biopsy completed [facility] 07/22/2024 15:18:36 Hysteroscopy completed [facility] 07/22/2024 15:19:05 Mirena, 52 mg completed [facility] 07/22/2024 15:19:45 hysteroscopy and endometrial biopsy completed Not Available [facility] 09/15/2024 14:15:20 introduction of Mirena coil completed Not Available [facility] 09/15/2024 14:15:21 endometrial biopsy completed Not Available [facility] 09/15/2024 14:15:21 colposcopy completed Not Available [facility] 09/15/2024 14:15:21 extraction of wisdom tooth completed Not Available [facility] 09/15/2024 14:15:21 Imaging Results None recorded. Procedure Notes None recorded. Medical Equipment None Reported. Allergies Allergen ID Allergen Name Allergen Category Reaction Reaction Severity Criticality Documentation Date Start Date Code Code System Note Provider Name and Address Organization Details Recorded Time 926798 Substance with sulfonami de structure and antibacte rial mechanism of action (substanc e) medicatio n Not available Not available Not available 07/22/2024 49215 8003 SNOMED [facility] for [facility] 13:15:53 Medications Name Sig Start Date Stop [...] Updated DateTime 07/25/2024 167.64 cm 22.6 kg/m2 08489.93 g 120/68 mm[Hg] Sony Drake [facility] 07/25/2024 13:15:34 Social History Question Answer Notes LastModified by [employer] Details LastModified Time Tobacco Smoking Status Never Smoker Note: - ; Screenin03/13/2021 Not Available [employer] 09/15/2024 14:59:37 How Many Times Per Week Do You Exercise? Less Than 1 Time Per Week SocialHistor yQuestion: 'Minimal Amount Of Exercise (Once Weekly Or Less)'; [employer] [email or web address] Information not available 09/15/2024 What Is Your [facility] Status? [email or web address] Information not available 07/25/2024 Sex: Unknown Functional Status Question Answer Note LastModified by [employer] Details LastModified Time Do you use any [...] Paternal Grandmother Malignant neoplastic disease Cancer PGM: [employer] al [email or web address] Not available 09/15/2024 15:02:02 Medical History Condition Response Psych- Anxiety Disorder Y Cancer- Genetic screening Reviewed with no changes Y Gynecological History Statement/Question Response Flow Moderate Date [...] ICD10 Code Diagnosis IMO Codes Diagnosis Note [id number] DAPHNIE NESBITT RD, MD [id number] [facility] _[facility]ASH [address] [place] [place] [address] 07/25/2024 12:45:58 07/25/2024 13:40:35 Gynecologic examination 27766464 Z01.419 Health Concerns Section Related Observation LastModified by Organization Detai ls LastModified Time None Recorded Concern Status LastModified by Organization Details LastModified Time None Recorded Advance Directives Directive None Recorded Payers Insurance Date Sequence Insurance Name Policy Number Policy Cross Covered Member ID Cross Member ID Guarantor Name 07/25/2024 1 [employer] [id number] Josse Sathya [id number] Winsome Mcdonnell Notes Date Note Type Note Provider Name and Address Organization Details Recorded Time 5 text/html [facility] Annual Well-Women Visit Age 30-39Reported by PatientPreventive Health ScreeningsFor current medical history, patient reportsreviewed and documented. For last pap smear, patient reportslast pap smear was normalandlast hpv negative. For diabetes screening, patient reportsreviewed and documented in ob gyn physician assistant history. For lipid screening, patient reportsreviewed and documented in ob gyn physician assistant history. For thyroid screening, patient reportsreviewed and documented in ob gyn physician assistant history.ContraceptionFor contraceptive method, patient reportssatisfied with current methodandcontraceptive method: partner vasectomy.Sexually ActiveFor sexually active, patient reportsyes: same partner.STI ScreenFor sti screen, patient reportsdeclines sti testing.Menstrual History/SymptomsFor menstrual cycle, patient reportsnormal menstrual cycle and flow.ROS as noted in the HPI [facility]IN [facility] [address], [place], [address], [facility] 07/25/2024 21:17:39 OBGyn Episode Ob Episode Information Episode Created Date Number of Fetuses Patient Bloodtype Patient rh Status Prepregnancy Weight lbs Domestic Partner Domestic Partner Phone Father Name Ct Manager Status 10/01/19 25 1 CLOSED Fetus Data First Name Last Name Admitted to NICU Weight (g) Sex Living Outcome Pediatric Complications Fetus ID Race Codes Race Delivery Type M [id number] z_Cesarea n Section Homero Calculation Initial Homero [...] Domestic Partner Domestic Partner Phone Father Name Ct Manager Status 10/01/19 1 CLOSED Fetus Data First Name Last Name Admitted to NICU Weight (g) Sex Living Outcome Pediatric Complications Fetus ID Race Codes Race Delivery Type M [id number] z_Cesarea n Section Homero Calculation Initial Homero [...]
[2025-03-28] MEDS: MORPHINE SULFATE (*CRX) 4 MG/ML INJ IV PUSH ×4 (01:18→20:10)
[2025-03-28] MEDS: ONDANSETRON INJ 4 MG/2 ML VIAL IV PUSH ×5 (01:18→20:09)
[2025-03-28] MEDS: SODIUM CHLORIDE 0.9% IV 1,000 ML 999 ML IV CONT (01:19)
[2025-03-28 01:33] LABS: Hematocrit 40.8 % (37.0-47.0); Hemoglobin 13.7 g/dL (12.0-15.0); Immature Granulocyte Percent A 0.2 % (0-0.5); Lymphocytes Absolute Auto 3.17 K/mm3 (0.9-3.2); Mean Corpuscular HGB Conc 33.6 g/dl (32-36); Mean Corpuscular Hemoglobin 30.9 pg (26-34); Mean Corpuscular Volume 91.9 fl (80-100); Nucleated Red Blood Cells Absolute Auto 0.000 K/mm3 (0.0-0.012); Nucleated Red Blood Cells Perc 0.0 % (0.0-0.2); Platelet Count Result 220 k/mm3 (150-375); Red Blood Count 4.44 M/mm3 (4.2-5.4); White Blood Count 8.0 K/mm3 (4.5-10.0)
[2025-03-28 01:41] LABS: Alanine Aminotransferase 149 U/L (6-35); Albumin Level 4.1 g/dL (3.5-5.1); Alkaline Phosphatase 69 U/L (38-126); Anion Gap 5 mmol/L (4-12); Aspartate Amino Transferase 224 U/L (14-36); Bilirubin,Total 0.5 mg/dL (0.2-1.3); Blood Urea Nitrogen 15 mg/dL (7-17); Calcium 8.9 mg/dL (8.4-10.2); Carbon Dioxide 28 mmol/L (22-30); Chloride 103 mmol/L (98-107); Estimated CRCL calculation 70 ml/min; Estimated Glomerular Filt Rate > 60; Glucose 84 mg/dL (65-110); Potassium 3.5 mmol/L (3.4-5.0); Sodium 136 mmol/L (137-145); Total Protein 6.9 g/dL (6.3-8.2)
[2025-03-28] MEDS: PIPERACILLIN/TAZOBACTAM SOD 4.5 GM in SODIUM CHLORIDE 0.9% IV 100 ML 200 ML IVPB (02:20)
[2025-03-28] MEDS: SODIUM CHLORIDE 0.9% IV 1,000 ML 100 ML IV CONT (03:01)
--- NOTE | 2025-03-28 03:05 | WPCEDHO ---
ED Hand Off Checklist All vitals saved: yes IV Site documented: yes All med administrations documented: yes Triage Note Triage Note pt to ED with c/o gallbladder 03/28/25 01:06 pain. pt has a procedure scheduled for 04/07. pt was admitted for the same issue. pt has pain that comes in waves. Allergies Sulfa (Sulfonamide Antibiotics) Allergy (Intermediate, Verified 03/28/25 00:54) Hives Family History (Last Reviewed 03/28/25 @ 01:06 by Herbert Sofia DO) Other Cerebral infarct Myocardial infarct Other Myocardial infarct Other CABG (coronary artery bypass graft) planned Father Multiple myeloma Active Medications including assessments/comments Sodium Chloride (Normal Saline Iv) 1,000 mls @ 100 mls/hr IV CONT .Q10H STA Stop: 03/28/25 11:57 Last Admin: 03/28/25 03:01 Dose: 100 mls/hr Documented By: ACS Infusion/Titration Document 03/28/25 03:01 ACS (Rec: 03/28/25 03:02 ACS [id number]) Intake IV Site Peripheral Access Right Antecubital Container Volume 1,000 Waste Amount 0 Dosing Infusion Rate 100 Cumulative Dose Not Applicable Increase/Decrease Started Elapsed Time Elapsed Time ( 0m minutes) Administered/Completed Medications Discontinued Medications Sodium Chloride (Normal Saline Iv) 1,000 mls @ 999 mls/hr IV CONT .Q1H1M STA Stop: 03/28/25 02:03 Last Infusion: 03/28/25 02:24 Dose: Infused Documented By: Admin: 03/28/25 01:19 Dose: 999 mls/hr Documented By: LEONIE Piperacillin Sod/Tazobactam (Sod 4.5 gm/ Sodium Chloride) 100 mls @ 200 mls/hr IVPB ONCE STA Stop: 03/28/25 02:24 Last Infusion: 03/28/25 02:52 Dose: Infused Documented By: Admin: 03/28/25 02:20 Dose: 200 mls/hr Documented By: ACS Morphine Sulfate (Morphine Sulfate (*Crx) 4 Mg/Ml Inj) 4 mg IV PUSH ONCE STA Stop: 03/28/25 01:04 Last Admin: 03/28/25 01:18 Dose: 4 mg Documented By: LEONIE Morphine Sulfate (Morphine Sulfate (*Crx) 4 Mg/Ml Inj) 4 mg IV PUSH ONCE STA Stop: 03/28/25 01:59 Last Admin: 03/28/25 02:21 Dose: 4 mg Documented By: FER Ondansetron HCl (Ondansetron Inj 4 Mg/2 Ml Vial) 4 mg IV PUSH ONCE STA Stop: 03/28/25 01:04 Last Admin: 03/28/25 01:18 Dose: 4 mg Documented By: LEONIE Interventions/Assessments IV / Saline Lock, Insert Start: 03/28/25 00:54 Freq: Status: Active Protocol: Document 03/28/25 01:17 LEONIE (Rec: 03/28/25 01:17 LEONIE [id number]) IV Assessment Peripheral Access Right Antecubital IV Catheter Access Initiated IV Insertion Date 03/28/25 IV Insertion Time 01:17 IV Insertion 1 Attempts IV Site Assessment WNL IV Care and WNL Maintenance PA: Gastrointestinal Assessment Start: 03/28/25 00:54 Freq: Status: Active Protocol: Document 03/28/25 02:56 ACS (Rec: 03/28/25 02:56 ACS [id number]) GI Assessment Gastrointestinal WNL Except Parameters Gastrointestinal Pain Symptoms Description Tender Last Vital Signs Pulse Rate 82 03/28/25 02:55 Respiratory Rate 15 03/28/25 02:55 Pulse Oximetry 98 03/28/25 02:55 Blood Pressure 107/72 03/28/25 02:55 Blood Pressure Mean 83 03/28/25 02:55 Weight 64.4 kg 03/28/25 01:06 Last Result - Abnormals Only Neut % (Auto) 45.0 % (45.5-73.1) L 03/28/25 01:21 [place] % (Auto) 9.2 % (2.6-8.5) H 03/28/25 01:21 Eos % (Auto) 5.7 % (0-4.4) H 03/28/25 01:21 [place] # (Auto) 0.7 K/mm3 (0.1-0.6) H 03/28/25 01:21 Eos # (Auto) 0.5 K/mm3 (0-0.3) H 03/28/25 01:21 Sodium 136 mmol/L (137-145) L 03/28/25 01:21 Lactic Acid < 0.5 mmol/L (0.7-2.0) L 03/28/25 01:30 AST 224 U/L (14-36) H 03/28/25 01:21 ALT 149 U/L (6-35) H 03/28/25 01:21 Most Recent Suicide Severity Rating Suicide Severity Rating NO RISK INDICATED 03/28/25 01:06
[2025-03-28 03:15] LABS: Add Urine Microscopic? NO; Appearance Urine Clear (Clear); Glucose Urine UA Negative (Negative); Leukocyte Esterase Ur Negative LEU/UL (Negative); Nitrate Urine Negative (Negative); Specific Grav Ur 1.005 (1.001-1.035)
--- NOTE | 2025-03-28 08:26 | PM.IMHP ---
H&P: HPI History of Present Illness Date/Time: 03/28/25 08:26 Chief Complaint: Recurrent right upper quadrant abdominal pain and biliary colic, cholelithiasis. Narrative: Patient is a 39-year-old female who was admitted to [facility] 1 week ago with epigastric right upper quadrant abdominal pain. Noted to have cholelithiasis on imaging but also had elevated liver enzymes with a elevated lipase suggestive of mild acute pancreatitis. MRCP was performed showing no evidence of retained common bile duct stone and she likely passed a gallstone causing mild gallstone pancreatitis. It was discussed with her at that time proceeding with a laparoscopic cholecystectomy during her index admission however the patient chose to schedule an outpatient laparoscopic cholecystectomy and there were no contraindications to proceeding with that plan. However yesterday she started having pain again similar to what she had last week and presented to the emergency room. Liver enzymes were slightly elevated AST and ALT but her total bilirubin was normal her pain has now resolved. White blood cell count is normal as well. No new imaging was performed. Review of Systems Review of Systems: The remainder of the review of systems to include constitutional, HEENT, cardiovascular, respiratory, GI, , integumentary, musculoskeletal, endocrine, immunologic, hematologic, psychiatric, and neurologic are all negative except for which is mentioned above in the HPI. [facility] Past Medical History Medical History Anxiety Surgical History Surgical History History of section History of tonsillectomy Family History Family History Other Cerebral infarct Myocardial infarct Other Myocardial infarct Other CABG (coronary artery bypass graft) planned Father Multiple myeloma Social History Social History Smoking status: Never smoker Alcohol intake: never Alcohol use details: socially Substance use: never Substance use type: does not use Lack of Transportation: No Lack of Food: Never True Current Housing: I Have Housing Concerned About Future Housing: No Difficulty Paying Gas/Electric Bills: No Difficulty Paying for Meds: No Currently Unemployed: No Education: Bachelor's Degree Difficulty w/ Childcare or Family Care: No Living arrangements: with family Spiritual care concerns: No Meds Home Medications and Allergies Home Medications ?Medication ?Instructions ?Recorded ?Confirmed ?Type cetirizine 10 mg tablet (24Hour 10 mg PO DAILY 03/22/25 03/28/25 History Allergy) docusate sodium 50 mg capsule 50 mg PO DAILY 03/22/25 03/28/25 History tirzepatide (weight loss) 2.5 2.5 mg subcut WEEKLY 03/22/25 03/28/25 History mg/0.5 mL subcutaneous pen injector (Zepbound) Held on 03/23/25. Instructions: Resume on 04/08/25. Hold until surgery vitamin B complex 1 cap PO DAILY 03/22/25 03/28/25 History L. crispatus, gasseri, jensenii, 1 cap PO DAILY 03/28/25 03/28/25 History rhamnosus 5 billion cell capsule ([employer] Vaginal Health Probiotic) metronidazole 500 mg tablet 500 mg PO BID 03/28/25 03/28/25 History Allergies Allergy/AdvReac Type Severity Reaction Status Date / Time Sulfa (Sulfonamide Allergy Intermediate Hives Verified 03/28/25 03:22 Antibiotics) Vital Signs Vital Signs - 24 hr 03/28/25 01:14 03/28/25 01:31 03/28/25 02:55 Temperature Pulse Rate 82 Respiratory Rate 14 14 15 Blood Pressure 129/87 102/73 107/72 Pulse Oximetry 100 100 98 Oxygen Delivery 03/28/25 03:07 03/28/25 03:40 03/28/25 03:42 Temperature 36.4 C L Pulse Rate 82 79 Respiratory Rate 15 20 Blood Pressure 107/72 98/58 L Pulse Oximetry 98 99 Oxygen Delivery Room Air 03/28/25 05:48 Temperature 36.7 C Pulse Rate 71 Respiratory Rate 20 Blood Pressure 95/49 L Pulse Oximetry 97 Oxygen Delivery Exam Const: General: comfortable and no acute distress HENMT: Ears: TM's normal bilaterally Face/Nose/Sinus: Normal nares present Mouth: Yes moist mucous membranes Eyes: General: appearance normal, both eyes and all related structures Sclera: sclerae normal Pupils: Equal, round and reactive pupils present EOM: EOMs intact bilaterally Neck: Neck: supple and no JVD Resp: Effort & Inspection: normal respiratory effort Auscultation: clear to auscultation bilaterally Cardio: Rate: regular rate Rhythm: regular rhythm GI: Other: Abdomen is soft and nondistended. No tenderness presently in the right upper quadrant or epigastric region of the abdomen. No ventral hernias no masses. Skin: General skin exam: normal color and no rashes or lesions noted Neuro: General: gait normal Speech: normal speech Motor exam (neuro): 5/5 motor strength present throughout Sensory Exam: normal sensation Extrem: General: normal to inspection Psych: Mental Status: mental status grossly normal Affect: normal affect H&P: Results Labs Labs: Short CBC 03/28/25 Range/Units 01:21 WBC 8.0 (4.5-10.0) K/mm3 Hgb 13.7 (12.0-15.0) g/dL Hct 40.8 (37.0-47.0) % Plt Count 220 (150-375) k/mm3 BMP 03/28/25 01:21 Sodium 136 L Potassium 3.5 Chloride 103 Carbon Dioxide 28 BUN 15 Creatinine 0.90 Glucose 84 Calcium 8.9 Liver Function 03/28/25 Range/Units 01:21 Total Bilirubin 0.5 (0.2-1.3) mg/dL AST 224 H (14-36) U/L ALT 149 H (6-35) U/L Alkaline Phosphatase 69 (38-126) U/L Albumin 4.1 (3.5-5.1) g/dL Urine 03/28/25 Range/Units 03:02 Urine Color Yellow (Yellow) Urine Appearance Clear (Clear) Urine pH 6.5 (5.0-9.0) Ur Specific [place] 1.005 (1.001-1.035) Urine Protein Negative (Negative) mg/dL Urine Glucose (UA) Negative (Negative) mg/dL Assessment and Plan Assessment and plan (1) Cholelithiasis: Code(s): K80.20 - Calculus of gallbladder without cholecystitis without obstruction Status: Acute Assessment and Plan: Patient re-presented with right upper quadrant abdominal pain prior to her scheduled laparoscopic cholecystectomy for next week. Her pain is now resolved and her total bilirubin is normal. AST and ALT are slightly elevated. Prior MRCP during [place] last week showed no retained common bile duct stone she likely passed a gallstone. No evidence of acute cholecystitis was seen on MRCP. We will keep her NPO this morning and discussed with her proceeding with a laparoscopic cholecystectomy, possible conversion open cholecystectomy later this afternoon. She is agreeable to this plan and will proceed to the OR later today. Risks, benefits, indications, and expected outcomes were discussed with the patient and/or family members. Specific risks to include bleeding and possible need for blood transfusion, infection, bile leak, injury to other organs, common bile duct injury, and conversion to open cholecystectomy has been discussed. I have answered all their questions and they agreed to proceed with surgery as outlined above. (2) Biliary colic: Code(s): K80.50 - Calculus of bile duct without cholangitis or cholecystitis without obstruction Status: Acute Assessment and Plan: As above
[2025-03-28] MEDS: LACTATED RINGERS 1,000 ML 30 ML IV CONT ×2 (12:00→15:03)
--- NOTE | 2025-03-28 12:20 | WPDHPUPDATE1 ---
History and Physical Update Update Date/Time: 03/28/25 12:20 History and Physical has been reviewed, including an updated exam of the patient. There are NO changes in the patient's condition. Risks, benefits, and alternatives have been discussed and questions answered. Patient agrees to proceed with procedure.
--- NOTE | 2025-03-28 12:46 | WPDANESEPPF ---
Anes - Initial Pre Proc Eval Procedure: Operation Date: 03/28/25 13:15 Proposed Procedures p Laparoscopic Cholecystectomy - Stevan Farris MD Date/Time: 03/28/25 12:46 Surgeon: Terri De La Rosa MD Pre Op Diagnosis: Acute cholecystitis Patient Data Age: 39 Gender: F Height: 1.68 m Weight: 62.1 kg Last Vital Signs Temp 36.7 C 03/28/25 12:00 Pulse 72 03/28/25 12:00 Resp 16 03/28/25 12:00 BP 105/66 03/28/25 12:00 Pulse Ox 100 03/28/25 12:00 O2 Del Method Room Air 03/28/25 12:00 Allergies Allergy/AdvReac Type Severity Reaction Status Date / Time Sulfa (Sulfonamide Allergy Intermediate Hives Verified 03/28/25 12:42 Antibiotics) Home Medications ?Medication ?Instructions ?Recorded ?Confirmed ?Type cetirizine 10 mg tablet (24Hour 10 mg PO DAILY 03/22/25 03/28/25 History Allergy) docusate sodium 50 mg capsule 50 mg PO DAILY 03/22/25 03/28/25 History tirzepatide (weight loss) 2.5 2.5 mg subcut WEEKLY 03/22/25 03/28/25 History mg/0.5 mL subcutaneous pen injector (Zepbound) Held on 03/23/25. Instructions: Resume on 04/08/25. Hold until surgery vitamin B complex 1 cap PO DAILY 03/22/25 03/28/25 History L. crispatus, gasseri, jensenii, 1 cap PO DAILY 03/28/25 03/28/25 History rhamnosus 5 billion cell capsule ([facility] Vaginal Health Probiotic) metronidazole 500 mg tablet 500 mg PO BID 03/28/25 03/28/25 History Laboratory Tests 03/28/25 03/28/25 03/28/25 01:21 01:30 03:02 WBC 8.0 K/mm3 (4.5-10.0) RBC 4.44 M/mm3 (4.2-5.4) Hgb 13.7 g/dL (12.0-15.0) Hct 40.8 % (37.0-47.0) MCV 91.9 fl (80-100) MCH 30.9 pg (26-34) MCHC 33.6 g/dl (32-36) RDW 13.0 % (11.5-14.5) Plt Count 220 k/mm3 (150-375) MPV 9.4 fl (7.4-10.4) Immature Gran % (Auto) 0.2 % (0-0.5) Neut % (Auto) 45.0 L % (45.5-73.1) Lymph % (Auto) 39.4 % (18.3-44.2) [place] % (Auto) 9.2 H % (2.6-8.5) Eos % (Auto) 5.7 H % (0-4.4) Baso % (Auto) 0.5 % (0.2-1.2) Lymph # (Auto) 3.17 K/mm3 (0.9-3.2) [place] # (Auto) 0.7 H K/mm3 (0.1-0.6) Eos # (Auto) 0.5 H K/mm3 (0-0.3) Baso # (Auto) 0.0 K/mm3 (0.0-0.1) Abs Immat Gran (auto) 0.02 K/mm3 (0.00-0.031) Absolute Neuts (auto) 3.6 K/mm3 (1.3-6.7) Absolute Nucleated RBC 0.000 K/mm3 (0.0-0.012) Nucleated RBC % 0.0 % (0.0-0.2) Sodium 136 L mmol/L (137-145) Potassium 3.5 mmol/L (3.4-5.0) Chloride 103 mmol/L (98-107) Carbon Dioxide 28 mmol/L (22-30) Anion Gap 5 mmol/L (4-12) BUN 15 mg/dL (7-17) Creatinine 0.90 mg/dL (0.7-1.0) Estim Creat Clear Calc 70 ml/min Estimated GFR > 60 (59 - ) Glucose 84 mg/dL (65-110) Lactic Acid < 0.5 L mmol/L (0.7-2.0) Calcium 8.9 mg/dL (8.4-10.2) Total Bilirubin 0.5 mg/dL (0.2-1.3) AST 224 H U/L (14-36) ALT 149 H U/L (6-35) Alkaline Phosphatase 69 U/L (38-126) Total Protein 6.9 g/dL (6.3-8.2) Albumin 4.1 g/dL (3.5-5.1) Urine Color Yellow (Yellow) Urine Appearance Clear (Clear) Urine pH 6.5 (5.0-9.0) Ur Specific [place] 1.005 (1.001-1.035) Urine Protein Negative mg/dL (Negative) Urine Glucose (UA) Negative mg/dL (Negative) Urine Ketones Negative mg/dL (Negative) Ur Blood (Man) Negative (Negative) Urine Nitrate Negative (Negative) Urine Bilirubin Negative (Negative) Urine Urobilinogen 0.2 mg/dL (<2.0) Leukocyte Esterase Rfl Negative OJ/UL (Negative) Blood Type Antibody Screen 03/28/25 08:28 WBC RBC Hgb Hct MCV MCH MCHC RDW Plt Count MPV Immature Gran % (Auto) Neut % (Auto) Lymph % (Auto) [place] % (Auto) Eos % (Auto) Baso % (Auto) Lymph # (Auto) [place] # (Auto) Eos # (Auto) Baso # (Auto) Abs Immat Gran (auto) Absolute Neuts (auto) Absolute Nucleated RBC Nucleated RBC % Sodium Potassium Chloride Carbon Dioxide Anion Gap BUN Creatinine Estim Creat Clear Calc Estimated GFR Glucose Lactic Acid Calcium Total Bilirubin AST ALT Alkaline Phosphatase Total Protein Albumin Urine Color Urine Appearance Urine pH Ur Specific [place] Urine Protein Urine Glucose (UA) Urine Ketones Ur Blood (Man) Urine Nitrate Urine Bilirubin Urine Urobilinogen Leukocyte Esterase Rfl Blood Type B Positive Antibody Screen Negative Patient hx anesthesia problems: none Family hx anesthesia problems: none Results Review: All pre-operative results and documents have been reviewed as part of the pre-operative evaluation. [facility] Past Medical History Medical History Anxiety Surgical History Surgical History History of section History of tonsillectomy Family History Family History Other Cerebral infarct Myocardial infarct Other Myocardial infarct Other CABG (coronary artery bypass graft) planned Father Multiple myeloma Social History Social History (Reviewed 03/28/25 @ 12:47 by HAILEY Varma Smoking status: Never smoker Alcohol intake: never Alcohol use details: socially Substance use: never Substance use type: does not use Lack of Transportation: No Lack of Food: Never True Current Housing: I Have Housing Concerned About Future Housing: No Difficulty Paying Gas/Electric Bills: No Difficulty Paying for Meds: No Currently Unemployed: No Education: Bachelor's Degree Difficulty w/ Childcare or Family Care: No Living arrangements: with family Spiritual care concerns: No Anes - Eval Final PreProcedure Day of Procedure 03/28/25 12:46 Patient weight: normal Heart: regular rate and rhythm Lungs: clear to auscultation Airway: Mallampati scale class 1 Neurological: alert and oriented Last oral intake: >/= 8 hours ASA classification: II Emergent: no Anesthetic plan: proceed Anesthesia type and monitoring: general ETT and standard monitoring Results Review: All pre-operative results and documents have been reviewed as part of the pre-operative evaluation. Informed Consent: The patient's anesthetic plan and its attendant risks and benefits were discussed with the patient/family/POA. Questions were solicited and answers provided to the satisfaction of the patient/family/POA.
[2025-03-28 12:59] LABS: BEDSIDEPREGUCG Negative (Negative)
[2025-03-28] MEDS: ceFAZolin 2 GM in SODIUM CHLORIDE 0.9% IV 50 ML 100 ML IVPB (13:56)
[2025-03-28] MEDS: LIDO 1%/EPINEPHRINE 1:100,000 50 ML VIAL (14:08)
--- NOTE | 2025-03-28 14:16 | S_PTH ---
PATIENT: Winsome Mcdonnell LOC: [id number] U#:[id number] AGE/SX: 39/F ROOM: 260 RE03/28/[address]: Stevan Farris MD : [id number] BED: 01 DIS: 03/29/2025 SPEC #: [id number] RECD: 03/29/25 07:57 STATUS: ELODIA REQ #: [id number] JOSE A: 03/28/25 14:[address]: Stevan Farris DEPT: [facility] Surgical RECD BY: Aster French ENTERED: 03/29/25 07:57 SP TYPE: Surgical OTHR DR: Terri De La Rosa MD PHYSICIAN NOT ON STAFF Tissues: A - Gallbladder Procedures: Hematoxylin and Eosin Stain Gross and Microscopic Level 3
[2025-03-28] MEDS: KETOROLAC 30 MG/ML VIAL (*BKC) IV PUSH (14:43)
--- NOTE | 2025-03-28 15:03 | W.PM.PROC2 ---
Procedure Note - Detailed Date of Procedure 03/28/25 Pre-op Diagnosis Acute cholecystitis secondary to cholelithiasis Post-op Diagnosis Same Procedure Performed Laparoscopic cholecystectomy Surgeon Stevan Farris MD Back End Architect Farooq Bhardwaj, DO Anesthesia General Indications Patient is a 39-year-old female who was admitted the hospital last week with epigastric right upper quadrant abdominal pain. Workup showed cholelithiasis without evidence of acute cholecystitis however she had elevated liver enzymes and elevated lipase suggestive of gallstone pancreatitis. MRCP was performed showing no evidence retained common bile duct stone appears she had passed a gallstone. Laparoscopic cholecystectomy was offered to the patient during that admission but she deferred and preferred to be discharged to come back for an interval laparoscopic cholecystectomy which was to be performed in the next 2 weeks. However last evening she had recurrent right upper quadrant abdominal pain and presented to the emergency room. Normal white blood cell count and slightly elevated AST and ALT bili total bilirubin was normal. No repeat imaging was performed. This morning she was pain free and is brought to the operating now for a laparoscopic cholecystectomy during this admission. Findings The gallbladder was edematous and slightly hyperemic. It was distended. No adhesions of the omentum, duodenum, colon, or stomach was seen to the gallbladder. The gallbladder had multiple small gallstones within it. It appeared to be slightly acutely inflamed. Description of Procedure After informed consent was obtained patient brought to the operating room she was placed supine position and general endotracheal anesthesia was administered. The abdomen is then prepped draped usual sterile fashion. Time-out was then performed correctly identifying the patient as well as procedure to be performed. She was given 2g of Ancef for perioperative IV antibiotics. I entered the abdomen left upper quadrant utilizing a 5mm Optiview port. Once inside the abdomen insufflated to adequate pneumoperitoneum of 15mmHg of CO2. There were no adhesions seen around the area the umbilicus so I placed a 5mm umbilical trocar port under visualization. Laparoscopic then switched over to the periumbilical trocar port looking to the upper portions of the abdomen the gallbladder could be visualized. There were no adhesions of the colon, duodenum, omentum, or stomach to the gallbladder. The gallbladder was slightly hyperemic and the gallbladder wall was slightly edematous. I then placed an epigastric 10mm trocar port as well as 2 right lateral subcostal 5mm trocar ports under direct visualization. The gallbladder was then grasped a laparoscopic instrument and elevated over the right half the shoulder. A 2nd grasper used to hold the gallbladder at the infundibulum then with lateral traction on the infundibulum gallbladder the visceral peritoneum was stripped down off of the infundibular gallbladder until the cystic duct was identified. The cystic duct was then dissected out circumferentially. The cystic artery was then identified as normal position and dissected out circumferentially as well. Posterior wall the gallbladder at the infundibulum dissected free liver into the critical view was obtained. At this point I then placed 2 clips proximally cystic duct and 2 clips distally high on infundibular gallbladder. The cystic artery was then clipped in a similar fashion. Both structures were then divided with laparoscopic migue. The gallbladder was resected off the liver utilizing electrocautery. No spillage of any bile or gallstones during the dissection. Once the gallbladder was free from liver is placed into an Endo-Catch bag and brought out through the epigastric port site. Gallbladder and contents were sent to pathology for examination. Then irrigated out the right upper quadrant the abdomen gallbladder fossa with sterile saline solution. Hemostasis was good. No evidence of bile leak was seen. I then aspirated the fluid from the pelvis and then removed all the trocar ports under direct visualization. All port sites appeared hemostatic. The abdomen was allowed to decompress. The port sites were irrigated sterile saline solution hemostasis was good. The 10mm epigastric trocar port fascial defect was then closed utilizing 0 Vicryl suture at the fascial level in a figure-eight fashion. The skin edges in all the port sites were approximated lies in a running subcuticular 4-0 Monocryl suture. The incisions were then cleaned the skin glue was applied. The patient tolerated the procedure well no complications. All sponges, needles, and instrument counts were correct at the end procedure. EBL was _10__cc. The patient was awakened and taken to recovery in stable and satisfactory condition. Implants None Estimated Blood Loss 10 Drains No Packing No Pathology Yes (Gallbladder and gallstones to pathology) Complications No immediate complications Condition Stable Disposition PACU [facility] Billing Surgery - Charge Forward: Surgery Billing
[2025-03-28] MEDS: fentaNYL CITRATE INJ (*CRX) 100 MCG/2 ML VIAL 25 MCG IV PUSH ×3 (16:03→16:50)
[2025-03-28] MEDS: HYDROcodone/acetaminophen (*CRX) 5-325 MG TABLET 1 TAB PO ×2 (17:17→21:27)
[2025-03-28] MEDS: oxyCODONE HCL (*CRX) 5 MG TAB IR PO (18:47)
[2025-03-29 03:00] VITALS: BP 105/59; PULSE 76; RESP 16; TEMP 36.9; O2SAT 99
[2025-03-29] MEDS: HYDROcodone/acetaminophen (*CRX) 5-325 MG TABLET 1 TAB PO ×2 (04:03→08:16)
[2025-03-29 07:00] VITALS: BP 96/67; PULSE 72; RESP 16; TEMP 36.7; O2SAT 99
--- NOTE | 2025-03-29 07:23 | PM.DS ---
DS: Admitting Diagnosis Discharge Date 03/29/2025 <Farooq Amanda Bhardwaj, DO - Last Filed: 03/29/25 07:30> Admitting Diagnosis Symptomatic cholelithiasis <Farooq Bhardwaj, DO - Last Filed: 03/29/25 07:30> DS: Discharge Diagnosis Discharge Diagnosis Assessment and Plan: POD #1 s/p laparoscopic cholecystectomy. Doing well postoperatively. Had some issues with pain control immediately after surgery, had a single dose of IV pain meds and her pain improved. Has been controlled overnight on PO pain medication. Tolerated diet last night without difficulty. Ambulating, urinating, having bowel function. Doing well clinically and medically stable for discharge. Patient to discharge home and follow up with Dr. Farris in 2 weeks. Okay to shower, do not submerge incisions for at least 2 weeks. No lifting more than 10 lbs for at least 2 weeks after surgery. <Farooq BuddySabine Bhardwaj, DO - Last Filed: 03/29/25 07:30> DS: Summary Hospital Course Reason for hospitalization: Symptomatic cholelithiasis <Farooq Amanda Lashae, DO - Last Filed: 03/29/25 07:30> Hospital Course: Patient was previously admitted 03/21 - 03/23 for similar symptoms and discharged home. She returned on 03/28 with similar symptoms. She had a MRCP with ductal dilation, but no evidence of choledocolithiasis. Her t bili was normal. AST and ALT elevated, alk phos WNL. She underwent a laparoscopic cholecystectomy on 03/28 and did well postoperatively. She was able to tolerate a regular diet, ambulate, urinate, having bowel function, pain controlled on PO pain medications, incisions CDI, and VSS. She was medically stable and discharged home on 03/29/2025. <Farooq Amanda Lashae, DO - Last Filed: 03/29/25 07:30> Status at Discharge Cognitive/behavioral status at discharge: A&O X4 <Farooq Bhardwaj, DO - Last Filed: 03/29/25 07:30> Functional status at discharge: independent ambulation <Farooq BuddySabine Bhardwaj, DO - Last Filed: 03/29/25 07:30> Overall status at discharge: patient is progressing back to baseline <Farooq Bhardwaj, DO - Last Filed: 03/29/25 07:30> Exam Const: General: comfortable and no acute distress <Farooq E. Bhardwaj, DO - Last Filed: 03/29/25 07:30> HENMT: Ears: TM's normal bilaterally <Farooq E. Bhardwaj, DO - Last Filed: 03/29/25 07:30> Face/Nose/Sinus: Normal nares present <Farooq E. Bhardwaj, DO - Last Filed: 03/29/25 07:30> Mouth: Yes moist mucous membranes <Farooq E. Bhardwaj, DO - Last Filed: 03/29/25 07:30> Eyes: General: appearance normal, both eyes and all related structures <Farooq E. Bhardwaj, DO - Last Filed: 03/29/25 07:30> Sclera: sclerae normal <Farooq E. Bhardwaj, DO - Last Filed: 03/29/25 07:30> Pupils: Equal, round and reactive pupils present <Farooq E. Bhardwaj, DO - Last Filed: 03/29/25 07:30> EOM: EOMs intact bilaterally <Farooq E. Bhardwaj, DO - Last Filed: 03/29/25 07:30> Neck: Neck: supple and no JVD <Farooq E. Bhardwaj, DO - Last Filed: 03/29/25 07:30> Resp: Effort & Inspection: normal respiratory effort <Farooq E. Bhardwaj, DO - Last Filed: 03/29/25 07:30> Auscultation: clear to auscultation bilaterally <Farooq E. Bhardwaj, DO - Last Filed: 03/29/25 07:30> Cardio: Rate: regular rate <Farooq E. Bhardwaj, DO - Last Filed: 03/29/25 07:30> Rhythm: regular rhythm <Farooq E. Bhardwaj, DO - Last Filed: 03/29/25 07:30> GI: Other: Abdomen is soft and nondistended. Incisions CDI. aTTP near incisions. No ventral hernias no masses. <Farooq E. Bhardwaj, DO - Last Filed: 03/29/25 07:30> Skin: General skin exam: normal color and no rashes or lesions noted <Farooq E. Bhardwaj, DO - Last Filed: 03/29/25 07:30> Neuro: General: gait normal <Farooq E. Bhardwaj, DO - Last Filed: 03/29/25 07:30> Speech: normal speech <Farooq E. Bhardwaj, DO - Last Filed: 03/29/25 07:30> Motor exam (neuro): 5/5 motor strength present throughout <Farooq E. Bhardwaj, DO - Last Filed: 03/29/25 07:30> Sensory Exam: normal sensation <Farooq E. Bhardwaj, DO - Last Filed: 03/29/25 07:30> Extrem: General: normal to inspection <Farooq E. Bhardwaj, DO - Last Filed: 03/29/25 07:30> Psych: Mental Status: mental status grossly normal <Farooq E. Bhardwaj, DO - Last Filed: 03/29/25 07:30> Affect: normal affect <Farooq E. Bhardwaj, DO - Last Filed: 03/29/25 07:30> DS: Data Data Completed and Pending Pending studies at discharge: Pending at discharge 03/28/25 14:16 Surgical [PTH] Routine <Farooq E. Bhardwaj, DO - Last Filed: 03/29/25 07:30> Labs on day of discharge: Labs from last 24 hours 03/28/25 03/28/25 12:57 08:28 POC Urine HCG, Qual Negative Blood Type B Positive Antibody Screen Negative <Farooq E. Bhardwaj, DO - Last Filed: 03/29/25 07:30> Discharge Plan Discharge Attending physician on discharge: Stevan Farris <Farooq E. Bhardwaj, DO - Last Filed: 03/29/25 07:30> Stevan Farris <Stevan Farris MD - Last Filed: 03/29/25 09:43> Discharging Clinician: Stevan Farris <Faoroq E. Bhardwaj, DO - Last Filed: 03/29/25 07:30> Stevan Farris <Stevan Farris MD - Last Filed: 03/29/25 09:43> Anticipated Discharge Date/Time: 03/28/25 19:00 <Farooq E. Bhardwaj, DO - Last Filed: 03/29/25 07:30> Patient Disposition: Home <Farooq E. Bhardwaj, DO - Last Filed: 03/29/25 07:30> Activity: other - see discharge instructions <Farooq E. Bhardwaj, DO - Last Filed: 03/29/25 07:30> other - see discharge instructions <Stevan Farris MD - Last Filed: 03/29/25 09:43> Diet: regular <Farooq Bhardwaj DO - Last Filed: 03/29/25 07:30> regular <Stevan Farris MD - Last Filed: 03/29/25 09:43> Wound Care Instructions: other - see discharge instructions <Farooq Bhardwaj DO - Last Filed: 03/29/25 07:30> other - see discharge instructions <Stevan Farris MD - Last Filed: 03/29/25 09:43> Discharge Instructions: May discharge home when stable. Follow up with Dr. Farris in the office in 2 weeks. Patient to call [phone] for an appointment. May shower in 24hours but do not soak incisions under water for 2 weeks. No lifting more than 10 to 15 lb for 2 weeks. May advance diet as tolerated. No driving for at least 3 days or until no longer taking any narcotic pain medication. Resume all home medications. Prescription for narcotic pain medicines will be sent to the patient's pharmacy if needed. May use Tylenol and/or ibuprofen in addition to or in place of narcotic pain medications for postoperative pain. <Farooq Bhardwaj DO - Last Filed: 03/29/25 07:30> Patient Instructions: Antibiotic Form <Farooq Bhardwaj DO - Last Filed: 03/29/25 07:30> Patient Language: Icelandic <Farooq Bhardwaj DO - Last Filed: 03/29/25 07:30> Stand Alone Forms: General Discharge Information <Farooq Bhardwaj DO - Last Filed: 03/29/25 07:30> Follow-up/Referrals: Stevan Farris MD [Physician, General Surgery] <Farooq Bhardwaj DO - Last Filed: 03/29/25 07:30> Discharge Medications: New hydrocodone-acetaminophen 5-325 mg tablet 1 - 2 tablet PO Q4H PRN (Reason: pain) Qty: 12 0RF Continued Zepbound 2.5 mg/0.5 mL pen injector 2.5 mg SUBCUT WEEKLY cetirizine [24Hour Allergy] 10 mg tablet 10 mg PO DAILY vitamin B complex Capsule 1 cap PO DAILY docusate sodium 50 mg capsule 50 mg PO DAILY metronidazole 500 mg tablet 500 mg PO BID Azo Vaginal Health Probiotic 5 billion cell capsule 1 cap PO DAILY <Farooq Bhardwaj, DO - Last Filed: 03/29/25 07:30> Date of admission: 03/28/25 01:59 <Farooq Bhardwaj, DO - Last Filed: 03/29/25 07:30> Primary Care Provider: PHYSICIAN NOT ON STAFF,NONSTAFF <Farooq Bhardwaj, DO - Last Filed: 03/29/25 07:30> Admitting Provider: Terri De La Rosa <Farooq Bhardwaj, DO - Last Filed: 03/29/25 07:30> Attending physician on admission: Terri De La Rosa <Farooq Bhardwaj, DO - Last Filed: 03/29/25 07:30> Condition: Stable <Farooq Bhardwaj, DO - Last Filed: 03/29/25 07:30> Attestation Supervising Provider Attestation I have personally seen and evaluated the patient today with surgery resident.? ? I have reviewed any new relevant radiographic and laboratory results.? I have reviewed the luna elements of the patient's current surgical or medical problems and I have personally performed a substantive portion of the care for this patient.? I personally performed the pertinent physical exam and reviewed and confirmed the patient's medicine list.? ? I have formulated the surgical care plan and I agree with the documented note above. Pt stable for discharge today. <Stevan Farris MD - Last Filed: 03/29/25 09:43>
[2025-03-29 08:32] VITALS: O2SAT 99
== END 2025-03-29 10:00 | disposition home or self-care (01) ==
LOC: ANHED 02:11 → ANH2MED 02:29
PROVIDERS: Admitting Provider Surgery; Emergency Provider Student in an Organized Health Care Education/Training Program; Visit Provider Surgery
PROC: 0FT44ZZ Resection of Gallbladder, Percutaneous Endoscopic Approach (ICD-10-PCS; CPT 47562; principal; 2025-03-28 13:15)
DX: K80.20 Calculus of gallbladder without cholecystitis without obstruction (principal); K80.50 Calculus of bile duct without cholangitis or cholecystitis without obstruction; Z82.3 Family history of stroke; Z82.49 Family history of ischemic heart disease and other diseases of the circulatory system; Z80.7 Family history of other malignant neoplasms of lymphoid, hematopoietic and related tissues
CPT/HCPCS: 47562; 36415; 80053; 81003; 83605; 85025; 86850; 86900; 86901; 88304; 96365; 96375; 96376; 99285; J0690; A9270; G0378; J0330; J1100; J1885; J2004; J2250; J2270; J2405; J2543; J2704; J3010; J7030; J7120